=== PATIENT | female | born 2000 ===

== ENCOUNTER 2022-01-22 17:26 | Emergency (ER) | payer OTHER, SELFPAY | END 2022-01-22 18:03 | disposition left against medical advice (07) | PROVIDERS: Emergency Provider Emergency Medicine | DX: J02.9 Acute pharyngitis, unspecified (principal); R50.9 Fever, unspecified ==

== ENCOUNTER 2022-02-04 15:20 | Emergency (ER) | payer OTHER, SELFPAY ==
--- NOTE | ~2022-02-04 | XR_ITS ---
EXAMINATION: XR CHEST CLINICAL INFORMATION: Shortness of breath. COMPARISON: None TECHNIQUE: Frontal view of the chest was obtained. FINDINGS: No significant abnormality is noted involving the heart, lungs, mediastinum, bony thorax or soft tissues. XR/XR chest 1V IMPRESSION: No acute cardiopulmonary process.
--- NOTE | ~2022-02-04 | CT_ITS ---
EXAMINATION: CT ANGIOGRAM OF THE CHEST WITH AND WITHOUT CONTRAST (CT PULMONARY ANGIOGRAM FOR PE) CLINICAL INFORMATION: Reason for Exam Tachycardia. Elevated D-dimer COMPARISON: None TECHNIQUE: Prior to contrast administration, noncontrast localization images were obtained. Subsequently, multidetector volumetric imaging was performed from the thoracic inlet to below the diaphragms following the administration of 75 mL Omnipaque 350 intravenous contrast. No contrast reaction reported Sagittal, coronal, and MIP oblique sagittal reformatted images were obtained on the CT workstation, uploaded to PACS, and reviewed. This CT examination was performed using dose optimization techniques as appropriate, variously including the following: *Automated exposure control *Adjustment of mA and/or kV according to patient size (this includes techniques or standardized protocols for targeted exams where dose is matched to indication/reason for exam; i.e. extremities or head) *Use of iterative reconstruction technique Total exam dose-length product 204 mGy-cm FINDINGS: QUALITY OF STUDY/CONTRAST BOLUS: Satisfactory. PULMONARY ARTERIES: No central or segmental pulmonary emboli. THORACIC AORTA: No aneurysm or dissection. LUNG: No focal consolidation, nodules or masses. Diffuse mild bronchial wall thickening, without bronchiectasis. PLEURA: No pleural effusion or pneumothorax. MEDIASTINUM: Normal heart size. No pericardial effusion. No hilar or mediastinal lymphadenopathy. No evidence of septal bowing or right heart strain. CHEST WALL/AXILLA: No axillary or internal mammary lymphadenopathy. OSSEOUS STRUCTURES: No acute or suspicious osseous abnormality. UPPER ABDOMEN: Unremarkable. No reflux of contrast into the hepatic veins to suggest elevated right heart pressures. CT/CT angio chest PE protocol IMPRESSION: * No pulmonary embolism. * Mild diffuse bronchial thickening without bronchiectasis. This can be seen with mild degrees of bronchitis or asthma. VTE:
[2022-02-04 15:24] VITALS: BP 125/80; PULSE 135; RESP 20; TEMP 36.4; O2SAT 100; BMI 26.5
--- NOTE | 2022-02-04 15:43 | ECG_ITS ---
Test Reason : tachycardia Blood Pressure : / mmHG Vent. Rate : 132 BPM Atrial Rate : 132 BPM P-R Int : 144 ms QRS Dur : 076 ms QT Int : 290 ms P-R-T Axes : 080 078 -51 degrees QTc Int : 429 ms Sinus tachycardia T wave abnormality, consider inferior ischemia T wave abnormality, consider anterior ischemia Abnormal ECG No previous ECGs available Referred By: Mirta Kate Electronically Signed By:DILIP CLEMONS MD
--- NOTE | 2022-02-04 15:48 | ED_ITS ---
HPI - Headache General Chief Complaint: Headache Stated Complaint: High Blood Pressure Time Seen by Provider: 02/04/22 15:37 Source: patient Mode of arrival: ambulatory History of Present Illness HPI Narrative: 21-year-old female with no significant past medical history presenting to the ED complaining palpitations and tachycardia since last night with associated headache. Headache not maximal at onset. Also reports decreased p.o. intake, SOB and CP last night, denies CP at present. Admits to similar symptoms recently, was evaluated at [facility] ED last week and told was for thyroid, but was not started on any medications. Denies vision change/loss, vomiting, diarrhea, pedal edema, calf pain, history of clots, recent travel. MD elicited complaint: headache Onset (ago): day(s) Related Data Previous Rx's Medication Instructions Recorded oseltamivir 75 mg capsule (Tamiflu) 75 mg PO Q12H 5 days #10 caps 02/04/22 Allergies Allergy/AdvReac Type Severity Reaction Status Date / Time No Known Allergies Allergy Verified 02/04/22 15:43 Review of Systems Review of Systems: Constitutional: No Fever, No Chills, No Fatigue, No Malaise ENT/Mouth: No Ear Pain, No Nasal Congestion, No sore throat, No Rhinorrhea, No Swallowing Difficulty Eyes: No Eye Pain, No Swelling, No Redness, No Vision Changes Cardiovascular: + Chest Pain (resolved), + SOB, No Dyspnea on Exertion, No Orthopnea, No Edema, + Palpitations Respiratory: No Cough, No Sputum, No Wheezing, No Dyspnea Gastrointestinal: + Nausea, No Vomiting, No Diarrhea, No Constipation, No Abdominal pain Genitourinary: No Dysuria, No Urinary Frequency, No Hematuria, No Flank Pain Musculoskeletal: No joint pain, No Myalgias, No Joint Swelling Skin: No Skin Lesions, No rash Neuro: No Weakness, No Numbness, No Paresthesias, No Loss of Consciousness, No Dizziness, + Headache Yes all other systems are reviewed and are negative Constitutional: Constitutional: Reports as per [facility] Past Medical History Attestation statement: The following information was validated with the patient. Social History Social History Smoked in Last 30 Days: No Use of substances other than those prescribed or required for medical reasons: No Advance Directives: No Advance Directives Information Provided: Yes Patient : No Physical Exam Vital Signs: Vital Signs: Last Vital Signs Temp 98.5 F 02/04/22 21:52 Pulse 103 H 02/04/22 21:52 Resp 24 H 02/04/22 21:52 BP 114/73 02/04/22 21:52 Pulse Ox 100 02/04/22 21:52 O2 Del Method 02/04/22 21:52 BMI result Body Mass Index 26.5 Const: General: cooperative, healthy appearing, comfortable and no acute distress Orientation/consciousness: patient oriented x3 Limitations: no limitations HEENT: Head: Yes normal to inspection and Yes atraumatic Ears: hearing grossly normal bilaterally General nose exam: Normal external nose present Face and sinus: Yes normal facial exam Eyes: General: appearance normal, both eyes and all related structures EOM: EOMs intact bilaterally Neck: Neck: Yes normal visual inspection, Yes no lymphadenopathy and Yes no meningeal signs Resp: Effort & Inspection: normal respiratory effort and no respiratory distress Auscultation: clear to auscultation bilaterally, no crackles, no rales, no rhonchi and no wheezes Cardio: Rate: regular rate and tachycardic Heart sounds: S1 normal heart sound present and S2 normal heart sound present GI: Inspection: Yes normal to inspection Palpation (GI): Soft to palpation, nontender, no guarding and not rigid Skin: Rashes: no rashes Wounds: no wounds Neuro: General: patient oriented x3, gait normal, tone normal, moves all extremities, no meningeal signs, no focal motor deficits and CN's II-XI intact bilaterally Gait exam (Neuro): Normal gait present Extrem: General: Yes normal to inspection, Yes no pedal edema and Yes no calf tenderness Course Course Course Narrative: -[id number]--patient had an episode ?SVT with heart rate in the 170s, blew into syringe heart rate now sinus rhythm in the 120s -no leukocytosis. D-dimer mildly elevated to 235 > will obtain CTA to rule out PE. Troponin negative -UA negative -influenza A positive XR chest 1V IMPRESSION: No acute cardiopulmonary process. Obtained records from [facility] patient was evaluated on 01/22/22, tachycardic in the 120's and febrile to 102.4 during that evaluation. Per note patient with h istory hypothyroid not on medications. Suspected to have viral illness, not prescribed antibiotics, recommended PCP follow-up due to elevated LFTs and thyroid. Tachycardia improved after IVF at their facility -0--heart rate improving in the 114 range. Magnesium slightly low. Liver function WNL. -TSH low, free T4 minimally elevated. Case discussed with Dr. Wilson, will hold off on any beta blockade as thyroid dysfunction may be abnormal due to active viral illness 1936--CT angio chest PE protocol IMPRESSION: *? No pulmonary embolism. *? Mild diffuse bronchial thickening without bronchiectasis. This can be seen with mild degrees of bronchitis or asthma. VTE: -on re-evaluation patient reports symptomatic improvement, denies headache at present. Heart rate improved with IVF and antipyretics/pain medication Results discussed with patient including worrisome signs and symptoms and strict return precautions, and when to return to the emergency department. They verbalized understanding and feel safe for discharge at this time. Medications Administered Discontinued Medications Generic Name Dose Route Start Last Admin Trade Name Freq PRN Reason Stop Dose Admin Acetaminophen 650 mg 02/04/22 16:18 02/04/22 16:30 Acetaminophen 325 Mg Tablet PO 02/04/22 16:19 650 mg ONCE ONE Administration Diphenhydramine HCl 12.5 mg 02/04/22 15:43 02/04/22 16:30 Diphenhydramine Hcl 50 Mg/Ml Vial IVPUSH 02/04/22 15:44 12.5 mg ONCE ONE Administration Sodium Chloride 1,000 mls @ 999 mls/hr 02/04/22 15:45 02/04/22 17:52 Ns IV 02/04/22 16:45 Infused .Q1H1M FELICIA Infusion Sodium Chloride 1,000 mls @ 999 mls/hr 02/04/22 18:15 02/04/22 19:40 Ns IV 02/04/22 19:15 Infused .Q1H1M FELICIA Infusion Magnesium Sulfate 2 gm in 50 mls @ 25 mls/hr 02/04/22 18:39 02/04/22 21:01 Magnesium Sulfate/H2o IV 02/04/22 20:38 Infused ONCE ONE Infusion Lactated Ringer's 500 mls @ 999 mls/hr 02/04/22 19:45 02/04/22 20:21 Lr IV 02/04/22 20:15 Infused .Q31M FELICIA Infusion Iohexol 100 ml 02/04/22 19:08 02/04/22 19:08 Iohexol 350 Mg/Ml 100 Ml Infus..Btl IV 02/04/22 19:09 75 ml ONCE ONE Administration Ketorolac Tromethamine 15 mg 02/04/22 19:26 02/04/22 19:39 Ketorolac Tromethamine 15 Mg/Ml Vial IVPUSH 02/04/22 19:27 15 mg ONCE ONE Administration Metoclopramide HCl 10 mg 02/04/22 15:43 02/04/22 16:30 Metoclopramide Hcl 10 Mg/2 Ml Vial IVPUSH 02/04/22 15:44 10 mg ONCE ONE Administration Oseltamivir Phosphate 75 mg 02/04/22 19:32 02/04/22 19:39 Oseltamivir Phosphate 75 Mg Capsule PO 02/04/22 19:33 75 mg ONCE ONE Administration MDM - Headache MDM Narrative Medical decision making narrative: 21-year-old female with no significant past medical history presenting to the ED complaining palpitations and tachycardia since last night with associated headache. Also reports SOB and CP last night, denies CP at present. On exam tachycardic, NAD, nontoxic appearing, lungs CTA, abdomen soft/nontender, no focal deficits. Concern for thyroid dysfunction vs possible PE vs anxiety vs migraine headache vs dehydration. Lower suspicion for ACS, infectious etiology including sepsis or DVT. Unlikely SAH/CVT or dissection Plan: EKG, labs, CXR, IVF, migraine cocktail, re-evaluate Differential Diagnosis Differential diagnosis: Likely migraine and headache Medical Records Attestation: I reviewed the patient's medical records. Lab Data Attestation: I reviewed the patient's lab results. Result diagrams: 02/04/22 16:18 02/04/22 17:36 Labs: Lab Results 02/04/22 02/04/22 02/04/22 Range/Units 16:18 16:18 16:18 WBC 7.6 (4.8-10.8) X10*3/uL RBC 4.89 (4.20-5.50) X10*6/uL Hgb 12.7 (12.0-16.0) g/dl Hct 39.1 (37.0-47.0) % MCV 80.0 (80.0-98.0) fL MCH 26.0 L (27.0-33.0) pg MCHC 32.5 (31.0-35.0) g/dl RDW 12.9 (11.0-16.0) % Plt Count 320 (160-400) X10*3/uL MPV 9.7 (9.4-12.3) fL Immature Gran % (Auto) 0.4 (0.0-0.4) % Neut % (Auto) 60.5 (45-73) % Lymph % (Auto) 23.3 (20-40) % [place]cd[place] % (Auto) 15.2 H (2-11) % Eos % (Auto) 0.3 (0-4) % Baso % (Auto) 0.3 (0-2) % Lymph # (Auto) 1.8 (1.2-4.9) X10*3/uL Mcd[place]ough # (Auto) 1.2 (0.1-1.2) X10*3/uL Eos # (Auto) 0.0 (0.0-0.4) X10*3/uL Baso # (Auto) 0.0 (0.0-0.2) X10*3/uL Abs Immat Gran (auto) 0.03 (0.00-0.03) X10*3/uL Absolute Neuts (auto) 4.6 (2.0-8.3) x10*3/uL Absolute Nucleated RBC 0.000 (0.0-0.012) X10*3/uL Nucleated RBC % (auto) 0.0 (0.0-0.2) /100WBC D-Dimer High Sensitivty 235 NG/ML Sodium (135-145) mmol/L Potassium (3.3-5.1) mmol/L Chloride (96-108) mmol/L Carbon Dioxide (22-29) mmol/L Anion Gap (12-20) BUN (9-16) mg/dL Creatinine (0.5-1.4) mg/dL Estim Creat Clear Calc Estimated GFR Random Glucose (60-115) mg/dL Calcium (8.4-10.2) mg/dL Magnesium (1.6-2.6) mg/dL Total Bilirubin (0.0-1.0) mg/dL Direct Bilirubin (0.0-0.5) mg/dL AST (5-31) U/L ALT (0-31) U/L Alkaline Phosphatase (39-117) U/L Troponin I High Sens < 3.5 (<3.5-17.0) ng/L Total Protein (6.5-8.0) g/dL Albumin (3.5-5.0) g/dL TSH (0.32-4.0) uIU/mL Free T4 (0.71-1.85) ng/dL Beta HCG, Quant mIU/mL Urine Color Urine Appearance Urine pH (5.0-9.0) Ur Specific [place] (1.005-1.025) Urine Protein (Neg-Trace) mg/dL Urine Glucose (UA) (Negative) mg/dL Urine Ketones (Negative) mg/dL Urine Blood (Negative) Urine Nitrite (Negative) Ur Leukocyte Esterase (Negative) Urine Test (NEGATIVE) COVID-19 (ARISTEO) (Negative) COVID-19 Clin Com Influenza Type A (AAMIR) (Negative) Influenza Type B (AAMIR) (Negative) Influenza A & B Note 02/04/22 02/04/22 02/04/22 Range/Units 17:21 17:21 17:36 WBC (4.8-10.8) X10*3/uL RBC (4.20-5.50) X10*6/uL Hgb (12.0-16.0) g/dl Hct (37.0-47.0) % MCV (80.0-98.0) fL MCH (27.0-33.0) pg MCHC (31.0-35.0) g/dl RDW (11.0-16.0) % Plt Count (160-400) X10*3/uL MPV (9.4-12.3) fL Immature Gran % (Auto) (0.0-0.4) % Neut % (Auto) (45-73) % Lymph % (Auto) (20-40) % Mcd[place]ough % (Auto) (2-11) % Eos % (Auto) (0-4) % Baso % (Auto) (0-2) % Lymph # (Auto) (1.2-4.9) X10*3/uL [place] # (Auto) (0.1-1.2) X10*3/uL Eos # (Auto) (0.0-0.4) X10*3/uL Baso # (Auto) (0.0-0.2) X10*3/uL Abs Immat Gran (auto) (0.00-0.03) X10*3/uL Absolute Neuts (auto) (2.0-8.3) x10*3/uL Absolute Nucleated RBC (0.0-0.012) X10*3/uL Nucleated RBC % (auto) (0.0-0.2) /100WBC D-Dimer High Sensitivty NG/ML Sodium 140 (135-145) mmol/L Potassium 4.0 (3.3-5.1) mmol/L Chloride 108 (96-108) mmol/L Carbon Dioxide 23 (22-29) mmol/L Anion Gap 13 (12-20) BUN 8 L (9-16) mg/dL Creatinine 0.54 (0.5-1.4) mg/dL Estim Creat Clear Calc 144.2 Estimated GFR > 60 Random Glucose 80 (60-115) mg/dL Calcium 8.7 (8.4-10.2) mg/dL Magnesium 1.5 L (1.6-2.6) mg/dL Total Bilirubin 0.3 (0.0-1.0) mg/dL Direct Bilirubin 0.2 (0.0-0.5) mg/dL AST 17 (5-31) U/L ALT 30 (0-31) U/L Alkaline Phosphatase 87 (39-117) U/L Troponin I High Sens (<3.5-17.0) ng/L Total Protein 6.0 L (6.5-8.0) g/dL Albumin 3.6 (3.5-5.0) g/dL TSH < 0.01 L (0.32-4.0) uIU/mL Free T4 1.87 H (0.71-1.85) ng/dL Beta HCG, Quant < 2 mIU/mL Urine Color Urine Appearance Urine pH (5.0-9.0) Ur Specific [place] (1.005-1.025) Urine Protein (Neg-Trace) mg/dL Urine Glucose (UA) (Negative) mg/dL Urine Ketones (Negative) mg/dL Urine Blood (Negative) Urine Nitrite (Negative) Ur Leukocyte Esterase (Negative) Urine Test (NEGATIVE) COVID-19 (ARISTEO) Negative (Negative) COVID-19 Clin Com See Note Influenza Type A (AAMIR) Positive A (Negative) Influenza Type B (AAMIR) Negative (Negative) Influenza A & B Note See Note 02/04/22 02/04/22 Range/Units 17:38 17:38 WBC (4.8-10.8) X10*3/uL RBC (4.20-5.50) X10*6/uL Hgb (12.0-16.0) g/dl Hct (37.0-47.0) % MCV (80.0-98.0) fL MCH (27.0-33.0) pg MCHC (31.0-35.0) g/dl RDW (11.0-16.0) % Plt Count (160-400) X10*3/uL MPV (9.4-12.3) fL Immature Gran % (Auto) (0.0-0.4) % Neut % (Auto) (45-73) % Lymph % (Auto) (20-40) % Mcd[place] % (Auto) (2-11) % Eos % (Auto) (0-4) % Baso % (Auto) (0-2) % Lymph # (Auto) (1.2-4.9) X10*3/uL [place] # (Auto) (0.1-1.2) X10*3/uL Eos # (Auto) (0.0-0.4) X10*3/uL Baso # (Auto) (0.0-0.2) X10*3/uL Abs Immat Gran (auto) (0.00-0.03) X10*3/uL Absolute Neuts (auto) (2.0-8.3) x10*3/uL Absolute Nucleated RBC (0.0-0.012) X10*3/uL Nucleated RBC % (auto) (0.0-0.2) /100WBC D-Dimer High Sensitivty NG/ML Sodium (135-145) mmol/L Potassium (3.3-5.1) mmol/L Chloride (96-108) mmol/L Carbon Dioxide (22-29) mmol/L Anion Gap (12-20) BUN (9-16) mg/dL Creatinine (0.5-1.4) mg/dL Estim Creat Clear Calc Estimated GFR Random Glucose (60-115) mg/dL Calcium (8.4-10.2) mg/dL Magnesium (1.6-2.6) mg/dL Total Bilirubin (0.0-1.0) mg/dL Direct Bilirubin (0.0-0.5) mg/dL AST (5-31) U/L ALT (0-31) U/L Alkaline Phosphatase (39-117) U/L Troponin I High Sens (<3.5-17.0) ng/L Total Protein (6.5-8.0) g/dL Albumin (3.5-5.0) g/dL TSH (0.32-4.0) uIU/mL Free T4 (0.71-1.85) ng/dL Beta HCG, Quant mIU/mL Urine Color Yellow Urine Appearance Cloudy Urine pH 5.5 (5.0-9.0) Ur Specific [place] 1.015 (1.005-1.025) Urine Protein Negative (Neg-Trace) mg/dL Urine Glucose (UA) Negative (Negative) mg/dL Urine Ketones Trace (Negative) mg/dL Urine Blood Negative (Negative) Urine Nitrite Negative (Negative) Ur Leukocyte Esterase Negative (Negative) Urine Test NEGATIVE (NEGATIVE) COVID-19 (ARISTEO) (Negative) COVID-19 Clin Com Influenza Type A (AAMIR) (Negative) Influenza Type B (AAMIR) (Negative) Influenza A & B Note ECG Data Attestation: I personally reviewed and interpreted this ECG as follows: ECG interpretation date: 02/04/22 ECG interpretation time: 15:30 Interpretation: EKG sinus tachycardia rate of 132. QTC 429. No STEMI. Nonischemic. Discharge Plan Discharge Clinical Impression: Influenza A Patient Disposition: Home, Self-Care Instructions: Influenza (ED) Additional Instructions: You have the flu. You are contagious. Cover your mouth and wash your hands. Tamiflu is antiviral medication please take as prescribed. Please stay hydrated at home. Take Tylenol & Motrin as needed. You need to have close follow-up with your primary care doctor. Return to the ED if symptoms persist or worsen, you develop constant racing heart rate, fever unresolved with medications, shortness breath or chest pain Prescriptions: New oseltamivir [Tamiflu] 75 mg capsule 75 mg PO Q12H 5 Days Qty: 10 0RF Referrals: Physician,None [Primary Care Provider] - 5 days Stand Alone Forms: Work/School Release
[2022-02-04 16:06] VITALS: PULSE 160
[2022-02-04 16:22] LABS: MANUAL DIFF FLAG NO
[2022-02-04 16:24] LABS: Basophils Percent Auto 0.3 % (0-2); Eosinophils Percent Auto 0.3 % (0-4); Hematocrit 39.1 % (37.0-47.0); Hemoglobin 12.7 g/dl (12.0-16.0); Imm Gran Abs Auto 0.03 X10*3/uL (0.00-0.03); Imm Gran Pct Auto 0.4 % (0.0-0.4); Lymphocytes Absolute Auto 1.8 X10*3/uL (1.2-4.9); Lymphocytes Percent Auto 23.3 % (20-40); Mean Corpuscular HGB Conc 32.5 g/dl (31.0-35.0); Mean Platelet Volume 9.7 fL (9.4-12.3); Monocytes Absolute Auto 1.2 X10*3/uL (0.1-1.2); Monocytes Percent Auto 15.2 % (2-11); Neutrophils Absolute Auto 4.6 x10*3/uL (2.0-8.3); Neutrophils Percent Auto 60.5 % (45-73); Platelet Count 320 X10*3/uL (160-400); Red Blood Count 4.89 X10*6/uL (4.20-5.50); Red Cell Distribution Width 12.9 % (11.0-16.0); White Blood Count 7.6 X10*3/uL (4.8-10.8)
[2022-02-04] MEDS: Acetaminophen 325 MG TABLET 650 MG PO (16:30)
[2022-02-04] MEDS: Metoclopramide HCl 10 MG/2 ML VIAL IVPUSH (16:30)
[2022-02-04] MEDS: diphenhydrAMINE HCL 50 MG/ML VIAL 12.5 MG IVPUSH (16:30)
[2022-02-04] MEDS: 0.9 % Sodium Chloride 1,000 ML 999 ML IV ×2 (16:30→18:22)
[2022-02-04 16:35] LABS: D Dimer High Sensitivity 235 NG/ML
[2022-02-04 16:53] LABS: Troponin-I High Sensitivity < 3.5 ng/L (<3.5-17.0)
[2022-02-04 17:49] LABS: Appearance Urine Cloudy; Color Urine Yellow; Glucose Urine UA Negative (Negative); Leukocyte Esterase Urine Negative (Negative); Nitrite Urine Negative (Negative); PH 5.5 (5.0-9.0); Specific Gravity - Urine 1.015 (1.005-1.025); Urine Blood Negative (Negative); Urine Ketones Trace mg/dL (Negative); Urine Protein Negative (Neg-Trace)
[2022-02-04 17:51] VITALS: BP 113/59; PULSE 120; RESP 18; TEMP 37; O2SAT 100
[2022-02-04 17:51] LABS: COVID-19 Test Negative (Negative); IDNOW Serial# 16C4AD1C
[2022-02-04 17:52] LABS: UPreg QC Valid YES; Urine Pregnancy NEGATIVE (NEGATIVE)
[2022-02-04 17:52] LABS: IDNOW Serial# BCCEAD1C; Influenza A Positive (Negative); Influenza B2 Negative (Negative)
[2022-02-04 18:32] LABS: Alanine Aminotransferase 30 U/L (0-31); Albumin Level 3.6 g/dL (3.5-5.0); Alkaline Phosphatase 87 U/L (39-117); Anion Gap 13 (12-20); Aspartate Amino Transferase 17 U/L (5-31); Bilirubin Direct 0.2 mg/dL (0.0-0.5); Bilirubin Total 0.3 mg/dL (0.0-1.0); Blood Urea Nitrogen 8 mg/dL (9-16); Calcium 8.7 mg/dL (8.4-10.2); Carbon Dioxide 23 mmol/L (22-29); Chloride 108 mmol/L (96-108); Creatinine Clr Calc Pharmacy 144.2; Estimated Glomerular Filt Rate > 60; Glucose Random 80 mg/dL (60-115); HCG Quantitative < 2 mIU/mL; Magnesium 1.5 mg/dL (1.6-2.6); Sodium 140 mmol/L (135-145); TSH reflex Free T4 < 0.01 uIU/mL (0.32-4.0)
[2022-02-04 19:04] LABS: Free T4 (Free Thyroxine) 1.87 ng/dL (0.71-1.85)
[2022-02-04] MEDS: Magnesium Sulfate/H2O 2 GM/50 ML PIGGYBACK IV (19:05)
[2022-02-04] MEDS: iohexoL 350 MG/ML 100 ML INFUS..BTL IV (19:08)
[2022-02-04 19:33] VITALS: BP 114/60; PULSE 120; RESP 18; TEMP 37.1; O2SAT 100
[2022-02-04] MEDS: Ketorolac Tromethamine 15 MG/ML VIAL IVPUSH (19:39)
[2022-02-04] MEDS: Oseltamivir Phosphate 75 MG CAPSULE PO (19:39)
[2022-02-04] MEDS: Lactated Ringers 500 ML 999 ML IV (19:45)
[2022-02-04 21:04] VITALS: BP 113/70; PULSE 109
[2022-02-04 21:52] VITALS: BP 114/73; PULSE 103; RESP 24; TEMP 36.9; O2SAT 100
--- NOTE | 2022-02-04 22:47 | PC.NURSE ---
Discharge instructions reviewed with pt. Pt verbalizes understanding. R ac IV removed.
== END 2022-02-04 22:48 | disposition home or self-care (01) ==
PROVIDERS: Physician Assistant; Emergency Provider Emergency Medicine
DX: J10.1 Influenza due to other identified influenza virus with other respiratory manifestations (principal); R00.0 Tachycardia, unspecified; R51.9 Headache, unspecified; Z20.822 Contact with and (suspected) exposure to COVID-19; Z79.899 Other long term (current) drug therapy
CPT/HCPCS: 36415; 71045; 71275; 80048; 80076; 81003; 81025; 83735; 84439; 84443; 84484; 84702; 85025; 85379; 87502; 87635; 93005; 96361; 96374; 96375; 96376; 99285; J1200; J1885; J2765; J3475; Q9967

== ENCOUNTER 2022-10-07 09:35 | Emergency (ER) | payer OTHER, SELFPAY ==
--- NOTE | ~2022-10-07 | US_ITS ---
EXAMINATION: US PELVIS CLINICAL INFORMATION: Suprapubic pain. COMPARISON: None available. TECHNIQUE: Ultrasound of the pelvis is performed using both transabdominal and transvaginal transducers along with Doppler. Transvaginal imaging is performed due to inadequate visualization transabdominally. FINDINGS: Uterus: The uterus is anteverted and measures 8.2 x 4.4 x 5.2 cm. The double wall endometrial thickness is 0.9 mm. The uterus is smooth in contour and has normal myometrial echogenicity. The cervix is closed. Mild anechoic fluid within the cervical canal without abnormality. Adnexa: Both ovaries are visualized. There is normal color flow to the adnexa. There is no ovarian torsion. Trace free fluid in the cul-de-sac. Right ovary measures 3.7 x 2.8 x 2.0 cm. 10.9 cc volume. Left ovary measures 3.6 with 2.2 x 1.6 cm. 6.2 cc volume. Urinary bladder: Mildly distended without focal abnormality. US/US pelvic and transvaginal IMPRESSION: Unremarkable pelvic ultrasound. Benign physiologic changes without other significant abnormality.
[2022-10-07 09:46] VITALS: BP 126/74; PULSE 77; RESP 19; TEMP 36.6; O2SAT 98; BMI 27.8
--- NOTE | 2022-10-07 10:32 | ED_ITS ---
HPI - Abdominal Pain General Chief Complaint: Abdominal Pain Stated Complaint: abd pain/ Nausea Time Seen by Provider: 10/07/22 09:53 Source: patient and RN notes reviewed Mode of arrival: ambulatory Limitations: no limitations History of Present Illness HPI narrative: This is a 21-year-old female, with a past medical history of ectopic in October 2021, presenting to the emergency department with generalized abdominal pain, nausea, and diarrhea x2 weeks. Patient denies any fevers, chills, headaches, sore throat, and ear pain. Patient reports that the abdominal pain she gets last for several minutes and resolves on its own. She states the pain is a cramping like sensation in his diffusely throughout her entire abdomen. She states that yesterday she developed left lower abdominal pain. She states that she has had no constipation, bloody or black stool. History of ectopic last year. She is sexually active with her , last menstrual period 4 weeks ago. No concerns for sexually transmitted infections. She endorses some urinary urgency, denies dysuria, hematuria, or frequency. No other complaints or concerns at this time. MD elicited complaint: abdominal pain Onset (ago): week(s) Pain Consistency: intermittent Location: diffuse Quality: cramping Radiation: LLQ Migration to: no migration Exacerbating factors: nothing Relieving factors: nothing Associated symptoms: nausea Related Data Previous Rx's Medication Instructions Recorded oseltamivir 75 mg capsule (Tamiflu) 75 mg PO Q12H 5 days #10 caps 02/04/22 ondansetron 4 mg disintegrating 4 mg PO Q6-8H PRN nausea and 10/07/22 tablet vomiting #14 tabs Allergies Allergy/AdvReac Type Severity Reaction Status Date / Time No Known Allergies Allergy Verified 10/07/22 09:46 Review of Systems Review of Systems Yes all other systems are reviewed and are negative Constitutional: Reports as per [facility] Social History Social History Alcohol intake: never Physical Exam ED Vital Signs: Vital Signs - 24 hr 10/07/22 09:46 10/07/22 12:40 Temperature 98 F 98.2 F Pulse Rate 77 89 Respiratory Rate 19 19 Blood Pressure 126/74 112/71 Pulse Oximetry 98 100 Oxygen Delivery Method Room Air Room Air BMI result Body Mass Index 27.8 Const General: cooperative, comfortable and no acute distress Orientation/consciousness: patient oriented x3 Limitations: no limitations HENMT Head: Yes normal to inspection, Yes normocephalic and Yes atraumatic Ears: hearing grossly normal bilaterally General nose exam: Normal external nose present Face and sinus: Yes normal facial exam Mouth: Normal oral and palatal mucosa present, oropharynx normal and moist mucous membranes Throat: Yes posterior oropharynx normal Eyes General: appearance normal, both eyes and all related structures Eyelids: Yes eyelids normal Conjunctivae: conjunctivae normal Sclerae: sclerae normal Pupils: Equal, round and reactive pupils present EOM: EOMs intact bilaterally Neck Neck: Yes normal visual inspection, Yes full ROM and Yes no lymphadenopathy Lymphatic: no lymphadenopathy noted Chest Chest palpation & inspection: normal inspection of the chest Resp Effort & Inspection: normal respiratory effort and able to speak in complete sentences Auscultation: clear to auscultation bilaterally, no crackles, no rales, no rhonchi and no wheezes Cardio Rate: regular rate Rhythm: regular rhythm Heart sounds: S1 normal heart sound present and S2 normal heart sound present GI Other: Abdomen is soft, with tenderness to palpation in suprapubic region left greater than right. No tenderness over McBurney's point. No rebound or guarding. Normoactive bowel sounds present all 4 quadrants. Inspection: Yes normal to inspection Auscultation: normal bowel sounds Skin General skin exam: no rashes or lesions noted Trauma: no lacerations or abrasions Wounds: no wounds Neuro General: patient oriented x3 and moves all extremities Cranial nerves: Yes Equal, round and reactive pupils present Extrem General: Yes normal to inspection Right upper extremity: normal to inspection Left upper extremity: normal to inspection Right lower extremity: normal to inspection Left lower extremity: normal to inspection Course Reevaluation(s) Reevaluation #1: pt remained asymptomatic during hospital stay. Vaginal US benign. Will defer CT abdomen at this time. UA unremarkable. all other labs reassuring. Discharged with strict return precautions. Pt understands and agrees with plan. Stable for d/c. Medical Decision Making Medical Decision Making MDM Narrative: 21-year-old female presenting to the emergency department for abdominal pain, nausea, and diarrhea. Endorsing urinary urgency. Patient also endorsing chest pain midsternal. That last for several seconds and resolves on its own. On arrival, vital signs within normal limits, patient is afebrile, normotensive, with a normal pulse. On examination, abdomen is soft, nondistended, with normoactive bowel sounds present all 4 quadrants, tenderness to palpation in the suprapubic region. Given duration and patient's only having pain with palpation, will defer diagnostic imaging and obtain labs and urinalysis for further investigation. The patient is not nauseous and not in pain at this time, will defer administering medications. Plan: Labs, EKG, UA Differential Diagnosis Differential Diagnoses: The differential diagnosis associated with the presentation includes Differential diagnoses include , ectopic , UTI, gastritis, gastroenteritis, viral syndrome, diverticulitis, diverticulosis, colilithiasis, cholecystitis, pyelonephritis Admission/Observation Consideration of admission/observation: Escalation of care including a dmission/observation considered Patient would have been admitted to the hospital had her work up had any findings where hospital admission was appropriate and her clinical presentation warranted hospital admission. Lab Data MDM Lab Attestation statement: I reviewed the patient's lab results. 10/07/22 10:43 10/07/22 10:43 Labs: Lab Results 10/07/22 10/07/22 10/07/22 Range/Units 10:42 10:42 10:43 WBC 11.6 H (4.8-10.8) X10*3/uL RBC 4.98 (4.20-5.50) X10*6/uL Hgb 12.4 (12.0-16.0) g/dl Hct 39.3 (37.0-47.0) % MCV 78.9 L (80.0-98.0) fL MCH 24.9 L (27.0-33.0) pg MCHC 31.6 (31.0-35.0) g/dl RDW 14.0 (11.0-16.0) % Plt Count 294 (160-400) X10*3/uL MPV 9.3 L (9.4-12.3) fL Immature Gran % (Auto) 0.4 (0.0-0.4) % Neut % (Auto) 63.9 (45-73) % Lymph % (Auto) 28.1 (20-40) % [place] % (Auto) 6.0 (2-11) % Eos % (Auto) 1.4 (0-4) % Baso % (Auto) 0.2 (0-2) % Lymph # (Auto) 3.3 (1.2-4.9) X10*3/uL [place] # (Auto) 0.7 (0.1-1.2) X10*3/uL Eos # (Auto) 0.2 (0.0-0.4) X10*3/uL Baso # (Auto) 0.0 (0.0-0.2) X10*3/uL Abs Immat Gran (auto) 0.05 H (0.00-0.03) X10*3/uL Absolute Neuts (auto) 7.4 (2.0-8.3) x10*3/uL Absolute Nucleated RBC 0.000 (0.0-0.012) X10*3/uL Nucleated RBC % (auto) 0.0 (0.0-0.2) /100WBC Sodium (135-145) mmol/L Potassium (3.3-5.1) mmol/L Chloride (96-108) mmol/L Carbon Dioxide (22-29) mmol/L Anion Gap (12-20) BUN (9-16) mg/dL Creatinine (0.5-1.4) mg/dL Estim Creat Clear Calc Estimated GFR Random Glucose (60-115) mg/dL Calcium (8.4-10.2) mg/dL Magnesium (1.6-2.6) mg/dL Total Bilirubin (0.0-1.0) mg/dL Direct Bilirubin (0.0-0.5) mg/dL AST (5-31) U/L ALT (0-31) U/L Alkaline Phosphatase (39-117) U/L Troponin I High Sens < 2.7 (<3.5-17.0) ng/L Total Protein (6.5-8.0) g/dL Albumin (3.5-5.0) g/dL Lipase (8-78) U/L Beta HCG, Quant < 2 mIU/mL Urine Color Urine Appearance Urine pH (5.0-9.0) Ur Specific [place] (1.005-1.025) Urine Protein (Neg-Trace) mg/dL Urine Glucose (UA) (Negative) mg/dL Urine Ketones (Negative) mg/dL Urine Blood (Negative) Urine Nitrite (Negative) Ur Leukocyte Esterase (Negative) Urine Test (NEGATIVE) 10/07/22 10/07/22 10/07/22 Range/Units 10:43 11:23 11:23 WBC (4.8-10.8) X10*3/uL RBC (4.20-5.50) X10*6/uL Hgb (12.0-16.0) g/dl Hct (37.0-47.0) % MCV (80.0-98.0) fL MCH (27.0-33.0) pg MCHC (31.0-35.0) g/dl RDW (11.0-16.0) % Plt Count (160-400) X10*3/uL MPV (9.4-12.3) fL Immature Gran % (Auto) (0.0-0.4) % Neut % (Auto) (45-73) % Lymph % (Auto) (20-40) % [place] % (Auto) (2-11) % Eos % (Auto) (0-4) % Baso % (Auto) (0-2) % Lymph # (Auto) (1.2-4.9) X10*3/uL [place] # (Auto) (0.1-1.2) X10*3/uL Eos # (Auto) (0.0-0.4) X10*3/uL Baso # (Auto) (0.0-0.2) X10*3/uL Abs Immat Gran (auto) (0.00-0.03) X10*3/uL Absolute Neuts (auto) (2.0-8.3) x10*3/uL Absolute Nucleated RBC (0.0-0.012) X10*3/uL Nucleated RBC % (auto) (0.0-0.2) /100WBC Sodium 141 (135-145) mmol/L Potassium 3.6 (3.3-5.1) mmol/L Chloride 107 (96-108) mmol/L Carbon Dioxide 28 (22-29) mmol/L Anion Gap 10 L (12-20) BUN 10 (9-16) mg/dL Creatinine 0.62 (0.5-1.4) mg/dL Estim Creat Clear Calc 128.4 Estimated GFR > 60 Random Glucose 80 (60-115) mg/dL Calcium 9.2 (8.4-10.2) mg/dL Magnesium 1.6 (1.6-2.6) mg/dL Total Bilirubin 0.3 (0.0-1.0) mg/dL Direct Bilirubin 0.1 (0.0-0.5) mg/dL AST 13 (5-31) U/L ALT 12 (0-31) U/L Alkaline Phosphatase 111 (39-117) U/L Troponin I High Sens (<3.5-17.0) ng/L Total Protein 6.9 (6.5-8.0) g/dL Albumin 3.8 (3.5-5.0) g/dL Lipase 10 (8-78) U/L Beta HCG, Quant mIU/mL Urine Color Yellow Urine Appearance Clear Urine pH 5.5 (5.0-9.0) Ur Specific [place] 1.025 (1.005-1.025) Urine Protein Negative (Neg-Trace) mg/dL Urine Glucose (UA) Negative (Negative) mg/dL Urine Ketones Trace (Negative) mg/dL Urine Blood Negative (Negative) Urine Nitrite Negative (Negative) Ur Leukocyte Esterase Negative (Negative) Urine Test NEGATIVE (NEGATIVE) Radiology Impression Discussion of test interpretation with radiology: I have reviewed the radiologist's reading. External Record Review External record reviewed: Inpatient record, Office record, Outpatient record, Prior outpatient labs, Prior outpatient radiology, Primary care record and Outside ED record Discharge Plan Discharge Clinical Impression: Abdominal pain, Nausea Patient Disposition: Home, Self-Care Instructions: Acute Nausea and Vomiting (ED), Abdominal Pain (ED) Additional Instructions: Your lab work, urine, and ultrasound were normal today. It is unclear what is causing you to have your symptoms. Please follow-up with your primary care physician for further evaluation. If any new or worsening symptoms occur including but not limited to worsening abdominal pain, nausea, vomiting, or diarrhea, Please return for re- evaluation. I am prescribing you a nausea medication, take as prescribed. Prescriptions: New ondansetron 4 mg tablet,disintegrating 4 mg PO Q6-8H PRN (Reason: nausea and vomiting) Qty: 14 0RF No Action oseltamivir [Tamiflu] 75 mg capsule 75 mg PO Q12H 5 Days Qty: 10 0RF Interventions: ED Discharge Assessment Last Done: 10/07/22 17:58 Discharge Date/Time: 10/07/22 18:00
--- NOTE | 2022-10-07 10:35 | ECG_ITS ---
Test Reason : CHEST PAIN Blood Pressure : / mmHG Vent. Rate : 079 BPM Atrial Rate : 079 BPM P-R Int : 134 ms QRS Dur : 074 ms QT Int : 374 ms P-R-T Axes : 052 072 036 degrees QTc Int : 428 ms Sinus rhythm with marked sinus arrhythmia Nonspecific T wave abnormality Abnormal ECG When compared with ECG of 04-FEB-2022 15:30, Vent. rate has decreased BY 53 BPM Nonspecific T wave abnormality has replaced inverted T waves in Inferior leads T wave inversion no longer evident in Anterior leads Referred By: Denise Jolley Electronically Signed By:LUIS E GUILLEN MD
[2022-10-07 10:47] LABS: MANUAL DIFF FLAG NO
[2022-10-07 10:56] LABS: Basophils Percent Auto 0.2 % (0-2); Eosinophils Absolute Auto 0.2 X10*3/uL (0.0-0.4); Eosinophils Percent Auto 1.4 % (0-4); Hematocrit 39.3 % (37.0-47.0); Hemoglobin 12.4 g/dl (12.0-16.0); Imm Gran Abs Auto 0.05 X10*3/uL (0.00-0.03); Imm Gran Pct Auto 0.4 % (0.0-0.4); Lymphocytes Absolute Auto 3.3 X10*3/uL (1.2-4.9); Lymphocytes Percent Auto 28.1 % (20-40); Mean Corpuscular HGB Conc 31.6 g/dl (31.0-35.0); Mean Corpuscular Hemoglobin 24.9 pg (27.0-33.0); Mean Corpuscular Volume 78.9 fL (80.0-98.0); Mean Platelet Volume 9.3 fL (9.4-12.3); Monocytes Absolute Auto 0.7 X10*3/uL (0.1-1.2); Neutrophils Absolute Auto 7.4 x10*3/uL (2.0-8.3); Neutrophils Percent Auto 63.9 % (45-73); Platelet Count 294 X10*3/uL (160-400); Red Blood Count 4.98 X10*6/uL (4.20-5.50); White Blood Count 11.6 X10*3/uL (4.8-10.8)
[2022-10-07 11:05] LABS: Alanine Aminotransferase 12 U/L (0-31); Albumin Level 3.8 g/dL (3.5-5.0); Alkaline Phosphatase 111 U/L (39-117); Anion Gap 10 (12-20); Aspartate Amino Transferase 13 U/L (5-31); Bilirubin Direct 0.1 mg/dL (0.0-0.5); Bilirubin Total 0.3 mg/dL (0.0-1.0); Blood Urea Nitrogen 10 mg/dL (9-16); Calcium 9.2 mg/dL (8.4-10.2); Carbon Dioxide 28 mmol/L (22-29); Chloride 107 mmol/L (96-108); Creatinine Clr Calc Pharmacy 128.4; Estimated Glomerular Filt Rate > 60; Glucose Random 80 mg/dL (60-115); Lipase 10 U/L (8-78); Magnesium 1.6 mg/dL (1.6-2.6); Potassium 3.6 mmol/L (3.3-5.1); Sodium 141 mmol/L (135-145); Total Protein 6.9 g/dL (6.5-8.0)
[2022-10-07 11:22] LABS: HCG Quantitative < 2 mIU/mL; Troponin-I High Sensitivity < 2.7 ng/L (<3.5-17.0)
[2022-10-07 11:32] LABS: Appearance Urine Clear; Color Urine Yellow; Glucose Urine UA Negative (Negative); Leukocyte Esterase Urine Negative (Negative); Nitrite Urine Negative (Negative); PH 5.5 (5.0-9.0); Specific Gravity - Urine 1.025 (1.005-1.025); Urine Blood Negative (Negative); Urine Ketones Trace mg/dL (Negative); Urine Protein Negative (Neg-Trace)
[2022-10-07 11:35] LABS: UPreg QC Valid YES; Urine Pregnancy NEGATIVE (NEGATIVE)
[2022-10-07 12:40] VITALS: BP 112/71; PULSE 89; RESP 19; TEMP 36.8; O2SAT 100
[2022-10-07 17:30] VITALS: BP 108/79; PULSE 95; RESP 15; O2SAT 93
== END 2022-10-07 18:00 | disposition home or self-care (01) ==
PROVIDERS: Physician Assistant Medical; Emergency Provider Emergency Medicine
DX: R10.32 Left lower quadrant pain (principal); R11.2 Nausea with vomiting, unspecified
CPT/HCPCS: 36415; 76830; 76856; 80048; 80076; 81003; 81025; 83690; 83735; 84484; 84702; 85025; 93005; 99284

== ENCOUNTER → 2022-10-07 10:35 | Outpatient (BNV) | payer OTHER, SELFPAY | PROVIDERS: Emergency Provider Emergency Medicine; Visit Provider Internal Medicine Cardiovascular Disease | DX: R07.9 Chest pain, unspecified (principal) | CPT/HCPCS: 93010 ==

== ENCOUNTER 2023-08-29 20:48 | Emergency (ER) | payer OTHER, SELFPAY ==
[2023-08-29] VITALS (7 sets, daily range): BP systolic 115–134; BP diastolic 59–81; PULSE 117–137; RESP 17–22; TEMP 36.5–37.2; O2SAT 100; BMI 26.5
--- NOTE | 2023-08-29 | ECG_ITS ---
Test Reason : TACHYCARDIA Blood Pressure : / mmHG Vent. Rate : 135 BPM Atrial Rate : 135 BPM P-R Int : 136 ms QRS Dur : 072 ms QT Int : 266 ms P-R-T Axes : 060 065 023 degrees QTc Int : 399 ms Sinus tachycardia Possible Left atrial enlargement Nonspecific T wave abnormality Abnormal ECG When compared with ECG of 07-OCT-2022 10:56, Vent. rate has increased BY 56 BPM Referred By: Generic ED Physician Electronically Signed By:LUIS E GUILLEN MD
--- NOTE | ~2023-08-29 | CT_ITS ---
EXAMINATION: CT ANGIOGRAM OF THE CHEST WITH AND WITHOUT CONTRAST (CT PULMONARY ANGIOGRAM FOR PE) CLINICAL INFORMATION: Reason for Exam chest pain COMPARISON: CT PE study 02/04/2022 TECHNIQUE: Prior to contrast administration, noncontrast localization images were obtained. Subsequently, multidetector volumetric imaging was performed from the thoracic inlet to below the diaphragms following the administration of 65 mL Omnipaque 350 intravenous contrast. No contrast reaction reported Sagittal, coronal, and MIP oblique sagittal reformatted images were obtained on the CT workstation, uploaded to PACS, and reviewed. This CT examination was performed using dose optimization techniques as appropriate, variously including the following: *Automated exposure control *Adjustment of mA and/or kV according to patient size (this includes techniques or standardized protocols for targeted exams where dose is matched to indication/reason for exam; i.e. extremities or head) *Use of iterative reconstruction technique Total exam dose-length product 257 mGy-cm FINDINGS: QUALITY OF STUDY/CONTRAST BOLUS: Suboptimal. PULMONARY ARTERIES: No central or large segmental THORACIC AORTA: No aneurysm. LUNG: There is mild peribronchial thickening. No focal consolidation, nodules or masses. PLEURA: No pleural effusion or pneumothorax. MEDIASTINUM: Normal heart size. No pericardial effusion. No hilar or mediastinal lymphadenopathy. No evidence of septal bowing or right heart strain. CORONARY ARTERY CALCIFICATION: None visualized on this study. CHEST WALL/AXILLA: No axillary or internal mammary lymphadenopathy. OSSEOUS STRUCTURES: No acute or suspicious osseous abnormality. UPPER ABDOMEN: Unremarkable. No reflux of contrast into the hepatic veins to suggest elevated right heart pressures. CT/CT angio chest PE protocol IMPRESSION: 1. No evidence of central or large segmental pulmonary emboli. Exam is somewhat limited by the contrast bolus. 2. Mild peribronchial thickening. VTE: negative but limited.
[2023-08-29 21:08] LABS: Basophils Percent Auto 0.4 % (0-2); Eosinophils Absolute Auto 0.1 X10*3/uL (0.0-0.4); Eosinophils Percent Auto 0.8 % (0-4); Hematocrit 35.3 % (37.0-47.0); Hemoglobin 11.2 g/dl (12.0-16.0); Imm Gran Abs Auto 0.01 X10*3/uL (0.00-0.03); Imm Gran Pct Auto 0.1 % (0.0-0.4); Lymphocytes Absolute Auto 2.8 X10*3/uL (1.2-4.9); Lymphocytes Percent Auto 37.5 % (20-40); MANUAL DIFF FLAG NO; Mean Corpuscular HGB Conc 31.7 g/dl (31.0-35.0); Mean Corpuscular Hemoglobin 23.2 pg (27.0-33.0); Mean Corpuscular Volume 73.2 fL (80.0-98.0); Mean Platelet Volume 9.3 fL (9.4-12.3); Monocytes Absolute Auto 0.7 X10*3/uL (0.1-1.2); Monocytes Percent Auto 9.3 % (2-11); Neutrophils Absolute Auto 3.9 x10*3/uL (2.0-8.3); Neutrophils Percent Auto 51.9 % (45-73); Platelet Count 329 X10*3/uL (160-400); Red Blood Count 4.82 X10*6/uL (4.20-5.50); Red Cell Distribution Width 18.8 % (11.0-16.0); White Blood Count 7.6 X10*3/uL (4.8-10.8)
[2023-08-29 21:13] LABS: INTERNATIONAL NORM RATIO 1.1 (0.9-1.1)
[2023-08-29 21:22] LABS: Alanine Aminotransferase 77 U/L (0-31); Albumin Level 3.7 g/dL (3.5-5.0); Alkaline Phosphatase 135 U/L (39-117); Anion Gap 14 (12-20); Aspartate Amino Transferase 45 U/L (5-31); Bilirubin Total 0.2 mg/dL (0.0-1.0); Blood Urea Nitrogen 12 mg/dL (9-16); Calcium 9.2 mg/dL (8.4-10.2); Carbon Dioxide 24 mmol/L (22-29); Chloride 110 mmol/L (96-108); Creatinine Clr Calc Pharmacy 101.5; Estimated Glomerular Filt Rate > 60; Glucose Random 104 mg/dL (60-115); Magnesium 1.6 mg/dL (1.6-2.6); Potassium 4.1 mmol/L (3.3-5.1); Sodium 144 mmol/L (135-145); Total Protein 6.8 g/dL (6.5-8.0)
[2023-08-29 21:40] LABS: Troponin-I High Sensitivity < 2.7 ng/L (<3.5-17.0)
[2023-08-29 23:05] LABS: D Dimer High Sensitivity 252 NG/ML
[2023-08-29] MEDS: 0.9 % Sodium Chloride 1,000 ML 999 ML IV (23:31)
[2023-08-29 23:38] LABS: HCG Quantitative < 2 mIU/mL; TSH reflex Free T4 < 0.01 uIU/mL (0.32-4.0)
--- NOTE | 2023-08-29 23:51 | ED.GENADULT ---
HPI - General Adult General Chief complaint: Arrhythmia/Palpitations Stated complaint: pulse check Time Seen by Provider: 08/29/23 22:55 Source: patient, RN notes reviewed and old records reviewed Mode of arrival: ambulatory Limitations: no limitations History of Present Illness ED Provider: Sofía COLE narrative: 22-year-old female with past medical history significant for hyperthyroidism presents for evaluation of tachycardia. Patient reports palpitations over the last 3-4 days. She states that when she checked her heart rate at home it was ?up to 140. ? She reports intermittent chest pain and shortness of breath. Currently she denies shortness of breath but does feel as though her heart is racing She is not currently on any medications. She states that she used to be on methimazole but this was discontinued around the time of her . She states that she gave in October of 2022 She reports being induced at 38 weeks due to tachycardia Denies any leg swelling, recent travel or history of blood clots Related Data Previous Rx's ?Medication ?Instructions ?Recorded oseltamivir 75 mg capsule (Tamiflu) 75 mg PO Q12H 5 days #10 caps 02/04/22 ondansetron 4 mg disintegrating 4 mg PO Q6-8H PRN nausea and 10/07/22 tablet vomiting #14 tabs methimazole 5 mg tablet 5 mg PO DAILY #90 tabs 08/30/23 propranolol 10 mg tablet 10 mg PO TID #90 tabs 08/30/23 Allergies Allergy/AdvReac Type Severity Reaction Status Date / Time No Known Allergies Allergy Verified 08/29/23 20:52 Review of Systems Constitutional: Constitutional: Denies body ache(s), Denies chills and Denies fever(s) Eyes: Eyes: Denies blurry vision ENT: Denies vertigo and Denies dizziness Cardiovascular: Cardiovascular: Reports chest pain, Reports rapid heart rate, Reports palpitations and Reports dyspnea Respiratory: Respiratory: Denies cough and Reports dyspnea Musculoskeletal: Musculoskeletal: Denies back pain Integumentary/Breasts: Skin/Breast: Denies rash Neurologic: Denies vertigo and Denies dizziness Endocrine: Endocrine: Reports palpitations PMF Social History Social History Alcohol intake: never Smoked in Last 30 Days: No Use of substances other than those prescribed or required for medical reasons: No Advance Directives: No Advance Directives Information Provided: No Do you have a plan to hurt others: No Plan Patient : No Physical Exam ED Vital Signs: Vital Signs - 24 hr 08/29/23 20:50 08/29/23 21:23 08/29/23 23:43 Temperature 98.9 F 97.7 F Pulse Rate 137 H 128 H 117 H Respiratory Rate 20 17 Blood Pressure 124/76 128/70 115/59 L Pulse Oximetry 100 100 Oxygen Delivery Method Room Air Room Air 08/29/23 23:44 08/29/23 23:45 08/29/23 23:47 Temperature Pulse Rate 117 H 119 H 117 H Respiratory Rate 22 H Blood Pressure 129/78 134/81 115/59 L Pulse Oximetry 100 Oxygen Delivery Method Room Air BMI result Body Mass Index 26.5 Const General: healthy appearing, comfortable, no acute distress, alert and awake Nutritional Appearance: well nourished Orientation/consciousness: patient oriented x3 HENMT Head: Yes normocephalic and Yes atraumatic Eyes Eyelids: Yes eyelids normal Conjunctivae: conjunctivae normal Sclerae: sclerae normal Corneas: corneas normal Pupils: Equal, round and reactive pupils present EOM: EOMs intact bilaterally Neck Neck: Yes full ROM Chest Other: No lower extremity edema Resp Effort & Inspection: normal respiratory effort, able to speak in complete sentences, no audible wheezes and not labored Auscultation: clear to auscultation bilaterally Cardio Rate: tachycardic Rhythm: regular rhythm Skin General skin exam: elasticity normal Neuro General: patient oriented x3 Cranial nerves: Yes Equal, round and reactive pupils present and Yes Bilaterally intact EOM present Cognition (Neuro): normal cognition Extrem Other: Moving all extremities well without any obvious deformities Medications Administered Discontinued Medications Generic Name Dose Route Start Last Admin Trade Name Freq PRN Reason Stop Dose Admin Sodium Chloride 1,000 mls @ 999 mls/hr 08/29/23 23:00 08/29/23 23:31 Ns IV 08/30/23 00:00 999 mls/hr .Q1H1M FELICIA Administration Iohexol 65 ml 08/30/23 00:25 08/30/23 00:25 Iohexol 350 Mg/Ml 100 Ml Infus..Btl IV 08/30/23 00:26 65 ml ONCE ONE Administration Medical Decision Making Medical Decision Making MDM Narrative: 22-year-old female with past medical history as above presents for evaluation of palpitations. Patient was tachycardic as high as 137, EKG does show sinus tachycardia. Given her history of hyperthyroidism I added on TSH with reflex T4. Given her history of tachycardia I ordered a D-dimer which was slightly elevated. She does complain of intermittent shortness of breath. A CTA was ordered. 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 No leukocytosis. Patient does have a mild anemia that is microcytic. This was discussed with the patient. There is no left shift. Coagulation studies significant for a D-dimer slightly elevated 252. Patient has mild transaminitis of unclear etiology. Electrolytes within normal limits with the exception of chloride is 110 just above normal. Renal function within normal limits, there is no DESI 08/29/23 21:03 08/29/23 21:03 Labs: Lab Results 08/29/23 Range/Units 21:03 WBC 7.6 (4.8-10.8) X10*3/uL RBC 4.82 (4.20-5.50) X10*6/uL Hgb 11.2 L (12.0-16.0) g/dl Hct 35.3 L (37.0-47.0) % MCV 73.2 L (80.0-98.0) fL MCH 23.2 L (27.0-33.0) pg MCHC 31.7 (31.0-35.0) g/dl RDW 18.8 H (11.0-16.0) % Plt Count 329 (160-400) X10*3/uL MPV 9.3 L (9.4-12.3) fL Immature Gran % (Auto) 0.1 (0.0-0.4) % Neut % (Auto) 51.9 (45-73) % Lymph % (Auto) 37.5 (20-40) % [place] % (Auto) 9.3 (2-11) % Eos % (Auto) 0.8 (0-4) % Baso % (Auto) 0.4 (0-2) % Lymph # (Auto) 2.8 (1.2-4.9) X10*3/uL [place] # (Auto) 0.7 (0.1-1.2) X10*3/uL Eos # (Auto) 0.1 (0.0-0.4) X10*3/uL Baso # (Auto) 0.0 (0.0-0.2) X10*3/uL Abs Immat Gran (auto) 0.01 (0.00-0.03) X10*3/uL Absolute Neuts (auto) 3.9 (2.0-8.3) x10*3/uL Absolute Nucleated RBC 0.000 (0.0-0.012) X10*3/uL Nucleated RBC % (auto) 0.0 (0.0-0.2) /100WBC PT 13.0 (11.1-13.3) SEC INR 1.1 (0.9-1.1) D-Dimer High Sensitivty 252 NG/ML Sodium 144 (135-145) mmol/L Potassium 4.1 (3.3-5.1) mmol/L Chloride 110 H (96-108) mmol/L Carbon Dioxide 24 (22-29) mmol/L Anion Gap 14 (12-20) BUN 12 (9-16) mg/dL Creatinine 0.76 (0.5-1.4) mg/dL Estim Creat Clear Calc 101.5 Estimated GFR > 60 Random Glucose 104 (60-115) mg/dL Calcium 9.2 (8.4-10.2) mg/dL Magnesium 1.6 (1.6-2.6) mg/dL Total Bilirubin 0.2 (0.0-1.0) mg/dL AST 45 H (5-31) U/L ALT 77 H (0-31) U/L Alkaline Phosphatase 135 H (39-117) U/L Troponin I High Sens < 2.7 (<3.5-17.0) ng/L Total Protein 6.8 (6.5-8.0) g/dL Albumin 3.7 (3.5-5.0) g/dL TSH < 0.01 L (0.32-4.0) uIU/mL Free T4 2.27 H (0.71-1.85) ng/dL Beta HCG, Quant < 2 mIU/mL Independent Interpretation I performed an independent interpretation of an: EKG (Sinus tachycardia rate of [address] segment changes) Discharge Plan Discharge Clinical Impression: Palpitations, Hyperthyroidism Patient Disposition: Home, Self-Care Instructions: Heart Palpitations (ED), Hyperthyroidism (ED) Additional Instructions: Start taking medication for your thyroid Drink plenty of fluids Follow up with auto parts salesperson Prescriptions: New methimazole 5 mg tablet 5 mg PO DAILY Qty: 90 0RF propranolol 10 mg tablet 10 mg PO TID Qty: 90 3RF No Action oseltamivir [Tamiflu] 75 mg capsule 75 mg PO Q12H 5 Days Qty: 10 0RF ondansetron 4 mg tablet,disintegrating 4 mg PO Q6-8H PRN (Reason: nausea and vomiting) Qty: 14 0RF Referrals: Ankit Belle MD [Physician] - 1 week Print Language: Indonesian
[2023-08-30 00:20] LABS: Free T4 (Free Thyroxine) 2.27 ng/dL (0.71-1.85)
[2023-08-30] MEDS: iohexoL 350 MG/ML 100 ML INFUS..BTL 65 ML IV (00:25)
[2023-08-30 01:57] VITALS: BP 120/52; PULSE 132
[2023-08-30] MEDS: Metoprolol Tartrate 25 MG TABLET PO (01:57)
[2023-08-30] MEDS: methIMAzole 5 MG TABLET PO (01:57)
[2023-08-30 01:58] VITALS: BP 120/52; PULSE 133; RESP 20; TEMP 36.8; O2SAT 99
[2023-08-30 04:04] VITALS: BP 108/56; PULSE 117; RESP 22; TEMP 37; O2SAT 99
== END 2023-08-30 03:05 | disposition home or self-care (01) ==
PROVIDERS: Physician Assistant; Emergency Provider Internal Medicine
DX: R00.2 Palpitations (principal); E05.90 Thyrotoxicosis, unspecified without thyrotoxic crisis or storm
CPT/HCPCS: 36415; 71275; 80053; 83735; 84439; 84443; 84484; 84702; 85025; 85379; 85610; 93005; 99284; 99285; Q9967

== ENCOUNTER → 2023-08-29 20:53 | Outpatient (BNV) | payer OTHER, SELFPAY | PROVIDERS: Emergency Provider Internal Medicine; Visit Provider Internal Medicine Cardiovascular Disease | DX: R94.31 Abnormal electrocardiogram [ECG] [EKG] (principal) | CPT/HCPCS: 93010 ==

== ENCOUNTER 2023-09-01 13:59 | Outpatient (AMB) | payer OTHER, SELFPAY ==
--- NOTE | 2023-09-01 14:00 | A.OFFVIS_ITS ---
Vital Signs 09/01/23 14:01 Height 5 ft 2 in Weight 168 lb 3.403 oz BMI 30.8 BP 100/62 Blood Pressure Location Lt brachial Position Sitting Pulse 125 H Pulse Source Pulse Oximeter Intake Visit Reasons: Hyperthyroidsm-confirmed Intake Note: Patient present today for Hyperthyroidism follow up visit. Multifocal Button Grinder Required: No Accompanied by: Self / Same As Patient Allergies No Known Allergies Allergy (Verified 09/01/23 14:05) Medication List - Last Reconciled 09/01/23 by Delmar Gonsales MD methimazole 5 mg PO DAILY ondansetron 4 mg PO Q6-8H PRN oseltamivir (Tamiflu) 75 mg PO Q12H 5 days propranolol 10 mg PO TID HPI Comments Details: 22 YO F with PMHx [] who is seen in consultation for hyperthyroidism at the request of PCP. Was initially diagnosed with hyperthyroidism 2 yrs ago. Saw endo at [facility] . Took methimazole for 1 yr. Stopped MMI 1 yr ago . Restarted MMI 2 days ago Currently denies any dysphagia or hoarseness of voice. Denies sensation of swelling in the neck or difficulty breathing while lying flat. Denies any tenderness in the neck. Has any palpitations, tremors, -weight loss, -frequent bowel movements. Denies any ocular complaints, blurred or double vision. Has hair loss, denes dry skin, heat or cold intolerance, weight gain, confusion. Denies any history of head or neck irradiation. Denies any family history of thyroid cancer. Father and sister has thyroid problems Had biopsy of nodules in the past. Use of kelp or seaweed : No Recent iodinated contrast dye: No Use of biotin Labs: [facility] Social History Alcohol intake: never Physical Exam HEENT reveals absence of lid lag , stare or proptosis or eyebrow loss. Thyroid gland is enlarged in size weighs about 45 g. No nodules or tenderness palpated. There is no cervical adenopathy palpated. Lungs CTA. Heart S1, S2 Reg R/R - M/R/G. Abdominal exam benign. Skin exam reveals absence of dryness or thyroid dermopathy or vitiligo. Nail exam reveals absence of thyroid acropachy or oncholysis. Neurologic exam reveals 2+ reflexes . Muscle Strength is 5/5 proximally. There are no tremors in upper extremities. Assessment & Plan Assessment & Plan (1) Hyperthyroidism: Code(s): E05.90 - Thyrotoxicosis, unspecified without thyrotoxic crisis or storm Category: Medical Plan: This is a 22-year-old female with a history of hyperthyroidism most likely due to Graves disease . She is currently on methimazole 5 mg q.d.. She appears to be clinically hyperthyroid Plan is to change the propranolol to metoprolol XL 50 mg. Will try to obtain records from [facility] treatment 2 years ago. Will check thyroid function studies, CBC and liver panel today to get baseline T3 although patient has started methimazole just 3 days ago. Will also try obtain a repeat set of thyroid function studies, liver panel and CBC in about 3 weeks' time. Went over side effects of methimazole including but not limited to skin rash, joint pains and rare risk of agranulocytosis. Lastly, discuss different options for treatment of hyperthyroidism including methimazole, radioactive iodine and surgery Orders: Orders Complete Blood Count Auto Diff Today E05.90 - Thyrotoxicosis, unspecified without thyrotoxic crisis or storm Complete Blood Count Auto Diff 3 Weeks E05.90 - Thyrotoxicosis, unspecified without thyrotoxic crisis or storm Triiodothyronine T3 Free 3 Weeks E05.90 - Thyrotoxicosis, unspecified without thyrotoxic crisis or storm Free T4 (Free Thyroxine) Today E05.90 - Thyrotoxicosis, unspecified without thyrotoxic crisis or storm Triiodothyronine T3 Free Today E05.90 - Thyrotoxicosis, unspecified without thyrotoxic crisis or storm Thyroid Stimulating Hormone Today E05.90 - Thyrotoxicosis, unspecified without thyrotoxic crisis or storm Liver Panel Today E05.90 - Thyrotoxicosis, unspecified without thyrotoxic crisis or storm Thyrotropin Receptor Antibody Today E05.90 - Thyrotoxicosis, unspecified without thyrotoxic crisis or storm Thyroid Stimulating Hormone 3 Weeks E05.90 - Thyrotoxicosis, unspecified without thyrotoxic crisis or storm Free T4 (Free Thyroxine) 3 Weeks E05.90 - Thyrotoxicosis, unspecified without thyrotoxic crisis or storm Liver Panel 3 Weeks E05.90 - Thyrotoxicosis, unspecified without thyrotoxic crisis or storm Medications: New metoprolol succinate ER 50 mg PO DAILY 30 tabs 4RF Discontinued propranolol Discontinued Reason: Doctor's Order 10 mg PO TID 90 tabs 3RF Coding Level of Care Code New Pt Level 4 (31980) Complex EM visit Add On G2211 Diagnoses Hyperthyroidism E05.90
[2023-09-01 14:01] VITALS: BP 100/62; PULSE 125; BMI 30.8
== END 2023-09-01 14:34 | disposition home or self-care (01) ==
PROVIDERS: Visit Provider Internal Medicine Endocrinology, Diabetes & Metabolism
DX: E05.90 Thyrotoxicosis, unspecified without thyrotoxic crisis or storm (principal)
CPT/HCPCS: 99204; G2211

== ENCOUNTER 2023-09-01 13:59 | Outpatient (REF) | payer OTHER, SELFPAY ==
[2023-09-01 14:55] LABS: MANUAL DIFF FLAG NO
[2023-09-01 15:42] LABS: Basophils Percent Auto 0.4 % (0-2); Eosinophils Absolute Auto 0.1 X10*3/uL (0.0-0.4); Eosinophils Percent Auto 0.8 % (0-4); Hematocrit 37.8 % (37.0-47.0); Hemoglobin 11.9 g/dl (12.0-16.0); Imm Gran Abs Auto 0.04 X10*3/uL (0.00-0.03); Imm Gran Pct Auto 0.4 % (0.0-0.4); Lymphocytes Absolute Auto 2.5 X10*3/uL (1.2-4.9); Lymphocytes Percent Auto 27.7 % (20-40); Mean Corpuscular HGB Conc 31.5 g/dl (31.0-35.0); Mean Corpuscular Hemoglobin 23.2 pg (27.0-33.0); Mean Corpuscular Volume 73.5 fL (80.0-98.0); Mean Platelet Volume 10.1 fL (9.4-12.3); Monocytes Absolute Auto 0.7 X10*3/uL (0.1-1.2); Monocytes Percent Auto 7.4 % (2-11); Neutrophils Absolute Auto 5.8 x10*3/uL (2.0-8.3); Neutrophils Percent Auto 63.3 % (45-73); Platelet Count 359 X10*3/uL (160-400); Red Blood Count 5.14 X10*6/uL (4.20-5.50); Red Cell Distribution Width 18.5 % (11.0-16.0); White Blood Count 9.2 X10*3/uL (4.8-10.8)
[2023-09-01 16:45] LABS: Alanine Aminotransferase 74 U/L (0-31); Albumin Level 3.9 g/dL (3.5-5.0); Alkaline Phosphatase 139 U/L (39-117); Aspartate Amino Transferase 50 U/L (5-31); Bilirubin Direct 0.2 mg/dL (0.0-0.5); Bilirubin Total 0.4 mg/dL (0.0-1.0); Total Protein 7.3 g/dL (6.5-8.0)
[2023-09-01 17:05] LABS: Free T4 (Free Thyroxine) 2.28 ng/dL (0.71-1.85); Thyroid Stimulating Hormone < 0.01 uIU/mL (0.32-4.0)
[2023-09-02 12:19] LABS: Triiodothyronine T3 Free 14.7 pg/mL (2.3-4.2)
[2023-09-03 21:43] LABS: Thyrotropin Receptor Antibody 18.15 IU/L (<=2.00)
== END 2023-09-01 14:00 | disposition home or self-care (01) ==
LOC: HO.LAB 13:59
PROVIDERS: Visit Provider Internal Medicine Endocrinology, Diabetes & Metabolism
DX: E05.90 Thyrotoxicosis, unspecified without thyrotoxic crisis or storm (principal)
CPT/HCPCS: 36415; 80076; 83520; 84439; 84443; 84481; 85025; 99202

== ENCOUNTER 2023-12-28 15:06 | Outpatient (AMB) | payer OTHER, SELFPAY ==
--- NOTE | 2023-12-28 15:07 | A.OFFVIS_ITS ---
Vital Signs 12/28/23 15:08 Height 5 ft 2 in Weight 162 lb 11.218 oz BMI 29.8 BP 110/70 Blood Pressure Location Lt brachial Position Sitting Pulse 80 Pulse Source Pulse Oximeter Intake Visit Reasons: Hyperthyroidsm-conf Intake Note: Patient present today for Hyperthyroidism follow up visit. Human Resources Compliance Manager Required: Yes Human Resources Compliance Manager Language: Can Vacuum Tester Services: Human Resources Compliance Manager Present Information Interpreted: non-clinical & clinical Accompanied by: Self / Same As Patient Allergies No Known Allergies Allergy (Verified 12/28/23 15:13) Medication List - Last Reconciled 12/28/23 by Delmar Gonsales MD methimazole 5 mg PO DAILY metoprolol succinate ER 50 mg PO DAILY ondansetron 4 mg PO Q6-8H PRN oseltamivir (Tamiflu) 75 mg PO Q12H 5 days HPI Comments Details: 23 YO F with PMHx [] who is seen in consultation for hyperthyroidism at the request of PCP. Was initially diagnosed with hyperthyroidism 2 yrs ago. Saw endo at [facility] . Took methimazole for 1 yr. Stopped MMI 1 yr ago . Now back on methimazole 5 mg q.d. and metoprolol Restarted MMI 2 days ago Currently denies any dysphagia or hoarseness of voice. Denies sensation of swelling in the neck or difficulty breathing while lying flat. Denies any tenderness in the neck. Has any palpitations, tremors, -weight loss, -frequent bowel movements. Denies any ocular complaints, blurred or double vision. Has hair loss, denes dry skin, heat or cold intolerance, weight gain, confusion. Denies any history of head or neck irradiation. Denies any family history of thyroid cancer. Father and sister has thyroid problems Had biopsy of nodules in the past. Use of kelp or seaweed : No Recent iodinated contrast dye: No Use of biotin No plans for PFSH Social History Alcohol intake: never Physical Exam Vital Signs: Last Vital Signs Pulse 80 12/28/23 15:08 BP 110/70 12/28/23 15:08 BMI result Body Mass Index 29.8 HEENT reveals absence of lid lag , stare or proptosis or eyebrow loss. Thyroid gland is enlarged in size weighs about 45 g. No nodules or tenderness palpated. There is no cervical adenopathy palpated. Lungs CTA. Heart S1, S2 Reg R/R - M/R/G. Abdominal exam benign. Skin exam reveals absence of dryness or thyroid dermopathy or vitiligo. Nail exam reveals absence of thyroid acropachy or oncholysis. Neurologic exam reveals 2+ reflexes . Muscle Strength is 5/5 proximally. There are no tremors in upper extremities. Assessment & Plan Assessment & Plan (1) Hyperthyroidism: Code(s): E05.90 - Thyrotoxicosis, unspecified without thyrotoxic crisis or storm Category: Medical Plan: This is a 22-year-old female with a history of hyperthyroidism due to Graves disease . She is currently on methimazole 5 mg q.d.. She appears to be clinically hyperthyroid Plan is to check thyroid function studies, CBC and liver panel. Will adjust methimazole dosage after Went over effects of methimazole including but not limited to skin rash, joint pains and rare risk of agranulocytosisagain Lastly, discuss different options for treatment of hyperthyroidism including methimazole, radioactive iodine and surgery. She was also 1 not to get while on the methimazole. Coding Level of Care Code Est Pt Level 3 (90691) Diagnoses Hyperthyroidism E05.90
[2023-12-28 15:08] VITALS: BP 110/70; PULSE 80; BMI 29.8
== END 2023-12-28 15:46 | disposition home or self-care (01) ==
PROVIDERS: Visit Provider Internal Medicine Endocrinology, Diabetes & Metabolism
DX: E05.90 Thyrotoxicosis, unspecified without thyrotoxic crisis or storm (principal)
CPT/HCPCS: 99213

== ENCOUNTER → 2023-12-28 15:06 | Outpatient (BNVA) | payer OTHER, SELFPAY | PROVIDERS: Visit Provider Internal Medicine Endocrinology, Diabetes & Metabolism | DX: E05.90 Thyrotoxicosis, unspecified without thyrotoxic crisis or storm (principal) | CPT/HCPCS: 99212 ==

== ENCOUNTER 2024-05-04 11:36 | Outpatient (REF) | payer OTHER, SELFPAY ==
[2024-05-04 12:04] LABS: MANUAL DIFF FLAG NO
[2024-05-04 12:31] LABS: Basophils Percent Auto 0.3 % (0-2); Eosinophils Absolute Auto 0.1 X10*3/uL (0.0-0.4); Eosinophils Percent Auto 1.6 % (0-4); Hematocrit 38.9 % (37.0-47.0); Hemoglobin 12.1 g/dl (12.0-16.0); Imm Gran Abs Auto 0.02 X10*3/uL (0.00-0.03); Imm Gran Pct Auto 0.2 % (0.0-0.4); Lymphocytes Absolute Auto 3.9 X10*3/uL (1.2-4.9); Lymphocytes Percent Auto 44.2 % (20-40); Mean Corpuscular HGB Conc 31.1 g/dl (31.0-35.0); Mean Corpuscular Hemoglobin 22.8 pg (27.0-33.0); Mean Corpuscular Volume 73.3 fL (80.0-98.0); Mean Platelet Volume 9.3 fL (9.4-12.3); Monocytes Absolute Auto 0.5 X10*3/uL (0.1-1.2); Monocytes Percent Auto 5.3 % (2-11); Neutrophils Absolute Auto 4.2 x10*3/uL (2.0-8.3); Neutrophils Percent Auto 48.4 % (45-73); Platelet Count 350 X10*3/uL (160-400); Red Blood Count 5.31 X10*6/uL (4.20-5.50); Red Cell Distribution Width 16.6 % (11.0-16.0); White Blood Count 8.7 X10*3/uL (4.8-10.8)
--- OUTSIDE RECORDS SUMMARY | 2024-05-04 12:55 | XMS_ITS | Clinical Summary ---
Author Organization [facility] Address [address] [place] [address] Care Team Providers Care Signals Officer Name Role Phone Terry Meek PA-C Primary Care Provider [phone] Source Comments PLEASE NOTE, if this patient is a minor, it may be UNLAWFUL to discuss sensitive information that is contained in these records (such as FAMILY PLANNING, MENTAL HEALTH or SUBSTANCE ABUSE) with the minor patient's parent or other person without the patient's specific authorization.[facility] Allergies No known active allergies Medications prenat.vits,jh, [id number] per tabletIndication s:13 weeks gestation of Take 1 Tab by mouth once daily 30 Tab 11 01/11/2019 Active Active Problems Problem Noted Date Diagnosed Date Hypothyroidism Thyroid disease Family History Medical History Relation Name Comments No Known Problems Brother Thyroid Disease Father No Known Problems Maternal Grandfather No Known Problems Maternal Grandmother Thyroid Disease Mother No Known Problems Paternal Grandfather No Known Problems Paternal Grandmother Thyroid Disease Sister 1 s/p thyroide ctomy No Known Problems Sister 2 Relation Name Status Comments Brother Alive Father Alive Maternal Grandfather Maternal Grandmother Mother Alive Paternal Grandfather Paternal Grandmother Alive Sister 1 Alive Sister 2 Alive Social History Tobacco Use Types Packs/Day Years Used Date Smoking Tobacco: Never Smokeless Tobacco: Never Alcohol Use Standard Drinks/Week Comments Never 0 (1 standard drink = 0.6 oz pur e alcohol) Social Connections Answer Date Recorded Social Connections and Isolation 0 01/11/2019 Financial Resource Strain Answer Date R ecorded Financial Resource Strain 0 2018 Stress Answer Date Recorded Stress 0 01/11/2019 Physical Activity Answer Date Recorded Physical Activity 0 01/11/2019 Food Insecurity Answer Date Recorded Food 0 01/11/2019 Transportation Needs Answer Date Record ed Transportation 0 01/11/2019 Housing Stability Answer Date Recorded Housing 0 01/11/2019 Safety and Environment Answer Date Fabian rded Safety 0 01/11/2019 Utilities Answer Date Recorded Utilities 0 01/11/2019 Employment Answer Date Recorded Employment 0 01/11/2019 Comments No Sex and Gender Information Value Date Recorded Sex Assigned at Female 01/11/2019 2:40 PM PDT Legal Sex Female 10:36 AM PDT Gender Identity Female 01/11/2019 2:40 PM PDT Sexual Orientation Straight 01/11/2019 2: 40 PM PDT Occupation Industry Job Start Date Job End Date unemployed Not on file Not on file Not on file Last Filed Vital Signs Vital Sign Reading Time Taken Comments Blood Pressure 100/58 01/11/2019 2:23 PM EDT Pulse 104 01/11/2019 2:23 PM EDT Temperature 37 ??C (98.6 ??F) 01/11/2019 2:23 PM EDT Respiratory Rate 20 01/11/2019 2:23 PM EDT Oxygen Saturation 96% 01/11/2019 2:23 PM EDT Inhaled Oxygen Concentration - - Weight 52.6 kg (116 lb) 01/11/2019 2:23 PM EDT Height 155 cm (5' 1.02 ) 01/11/2019 2:23 PM EDT Body Mass Index 21.9 01/11/2019 2:23 PM EDT Plan of Treatment Not on file Insurance [employer] Care Teams Signals Officer Relationship Specialty Start Date End Date Terry Meek PA-C [id number] [place] [id number] PCP - General 10/08/21
[2024-05-04 12:56] LABS: Alanine Aminotransferase 21 U/L (0-31); Albumin Level 3.9 g/dL (3.5-5.0); Alkaline Phosphatase 145 U/L (39-117); Aspartate Amino Transferase 21 U/L (5-31); Bilirubin Direct 0.2 mg/dL (0.0-0.5); Bilirubin Total 0.3 mg/dL (0.0-1.0); Total Protein 7.7 g/dL (6.5-8.0)
[2024-05-04 13:12] LABS: Free T4 (Free Thyroxine) 1.72 ng/dL (0.71-1.85); Thyroid Stimulating Hormone < 0.01 uIU/mL (0.32-4.0)
[2024-05-05 18:13] LABS: Triiodothyronine T3 Free 7.3 pg/mL (2.3-4.2)
== END 2024-05-04 11:37 | disposition home or self-care (01) ==
LOC: HO.LAB 11:36
PROVIDERS: Visit Provider Internal Medicine Endocrinology, Diabetes & Metabolism
DX: E05.90 Thyrotoxicosis, unspecified without thyrotoxic crisis or storm (principal)
CPT/HCPCS: 36415; 80076; 84439; 84443; 84481; 85025

== ENCOUNTER 2024-09-01 00:04 | Emergency (ER) | payer OTHER, SELFPAY ==
[2024-09-01 00:12] VITALS: BP 122/70; PULSE 125; RESP 16; TEMP 36.1; O2SAT 100; BMI 31.3
--- NOTE | 2024-09-01 00:16 | MHC.EDTECH ---
labs done upon arrival, pt unable to give urine sample in triage.
[2024-09-01 00:22] LABS: Basophils Percent Auto 0.1 % (0-2); Eosinophils Percent Auto 0.1 % (0-4); Hematocrit 38.7 % (37.0-47.0); Hemoglobin 12.6 g/dl (12.0-16.0); Imm Gran Abs Auto 0.05 X10*3/uL (0.00-0.03); Imm Gran Pct Auto 0.4 % (0.0-0.4); Lymphocytes Absolute Auto 0.9 X10*3/uL (1.2-4.9); Lymphocytes Percent Auto 7.3 % (20-40); MANUAL DIFF FLAG NO; Mean Corpuscular HGB Conc 32.6 g/dl (31.0-35.0); Mean Corpuscular Hemoglobin 23.2 pg (27.0-33.0); Mean Corpuscular Volume 71.1 fL (80.0-98.0); Mean Platelet Volume 9.6 fL (9.4-12.3); Monocytes Absolute Auto 0.5 X10*3/uL (0.1-1.2); Monocytes Percent Auto 4.4 % (2-11); Neutrophils Absolute Auto 10.9 x10*3/uL (2.0-8.3); Neutrophils Percent Auto 87.7 % (45-73); Platelet Count 302 X10*3/uL (160-400); Red Blood Count 5.44 X10*6/uL (4.20-5.50); Red Cell Distribution Width 15.8 % (11.0-16.0); White Blood Count 12.4 X10*3/uL (4.8-10.8)
[2024-09-01 00:44] LABS: Anion Gap 11 (12-20); Chloride 104 mmol/L (96-108); HCG Quantitative < 2 mIU/mL; Potassium 3.3 mmol/L (3.3-5.1); Sodium 135 mmol/L (135-145)
[2024-09-01 00:50] LABS: Alanine Aminotransferase 14 U/L (0-31); Albumin Level 3.9 g/dL (3.5-5.0); Alkaline Phosphatase 120 U/L (39-117); Aspartate Amino Transferase 16 U/L (5-31); Bilirubin Total 0.5 mg/dL (0.0-1.0); Blood Urea Nitrogen 13 mg/dL (9-16); Calcium 8.9 mg/dL (8.4-10.2); Carbon Dioxide 23 mmol/L (22-29); Creatinine Clr Calc Pharmacy 145.4; Estimated Glomerular Filt Rate > 60; Glucose Random 198 mg/dL (60-115); Lipase 10 U/L (8-78); Total Protein 7.1 g/dL (6.5-8.0)
[2024-09-01] MEDS: 0.9 % Sodium Chloride 1,000 ML 999 ML IV (00:54)
[2024-09-01] MEDS: ondansetron HCL 4 MG/2 ML VIAL IVPUSH (00:54)
[2024-09-01] MEDS: Ketorolac Tromethamine 30 MG/ML VIAL IVPUSH (00:54)
[2024-09-01 01:25] LABS: TSH reflex Free T4 < 0.01 uIU/mL (0.32-4.0)
--- NOTE | 2024-09-01 01:48 | ED.GENADULT ---
HPI - General Adult General Chief complaint: Abdominal Pain Stated complaint: diarrhea vomiting Time Seen by Provider: 09/01/24 00:16 Source: patient, RN notes reviewed and old records reviewed Mode of arrival: ambulatory Limitations: no limitations History of Present Illness ED Provider: Sofía COLE narrative: 23-year-old female presents for evaluation of abdominal pain, vomiting, diarrhea. Her symptoms started this morning. Denies any recent antibiotic use or recent travel pain Denies any sick contacts pain She has diffuse abdominal pain. The patient reports a previous ectopic but no other abdominal surgeries. Her pain is 8/10 Denies any fevers or chills pain Denies any black or bloody stool Related Data Previous Rx's ?Medication ?Instructions ?Recorded oseltamivir 75 mg capsule (Tamiflu) 75 mg PO Q12H 5 days #10 caps 02/04/22 ondansetron 4 mg disintegrating 4 mg PO Q6-8H PRN nausea and 10/07/22 tablet vomiting #14 tabs methimazole 5 mg tablet 5 mg PO DAILY #90 tabs 08/30/23 metoprolol succinate 50 mg 50 mg PO DAILY #90 tabs 11/29/23 tablet,extended release 24 hr ondansetron 4 mg disintegrating 4 mg PO Q8H PRN nausea and 09/01/24 tablet vomiting #20 tabs Allergies Allergy/AdvReac Type Severity Reaction Status Date / Time No Known Allergies Allergy Verified 09/01/24 00:13 Review of Systems Constitutional: Constitutional: Denies body ache(s), Denies chills and Denies fever(s) Eyes: Eyes: Denies blurry vision ENT: Denies dizziness Cardiovascular: Cardiovascular: Denies chest pain Respiratory: Respiratory: Denies cough and Denies pain with cough Gastrointestinal: Gastrointestinal: Reports abdominal pain, Denies belching, Denies melena, Reports nausea, Reports vomiting and Denies hematemesis Musculoskeletal: Musculoskeletal: Denies back pain Integumentary/Breasts: Skin/Breast: Denies rash Neurologic: Denies dizziness [facility] Social History Social History Alcohol intake: never Smoked in Last 30 Days: No Use of substances other than those prescribed or required for medical reasons: No Advance Directives: No Advance Directives Information Provided: Yes Do you have a plan to hurt others: No Plan Physical Exam ED Vital Signs: Vital Signs - 24 hr 09/01/24 00:12 Temperature 97.0 F Pulse Rate 125 H Respiratory Rate 16 Blood Pressure 122/70 Pulse Oximetry 100 Oxygen Delivery Method Room Air BMI result Body Mass Index 31.3 Const General: healthy appearing, comfortable, no acute distress, alert and awake Nutritional Appearance: well nourished Orientation/consciousness: patient oriented x3 HENMT Head: Yes normocephalic and Yes atraumatic Eyes Eyelids: Yes eyelids normal Conjunctivae: conjunctivae normal Sclerae: sclerae normal Corneas: corneas normal Pupils: Equal, round and reactive pupils present EOM: EOMs intact bilaterally Neck Neck: Yes full ROM Resp Effort & Inspection: normal respiratory effort, able to speak in complete sentences and not labored Cardio Rate: regular rate Rhythm: regular rhythm GI Other: Patient has diffuse abdominal tenderness without rebound or guarding. Abdomen is nondistended Inspection: No distended Palpation (GI): Soft to palpation, not firm, Tenderness to palpation present (GI), no guarding and not rigid Skin General skin exam: elasticity normal Neuro General: patient oriented x3 Cranial nerves: Yes Equal, round and reactive pupils present and Yes Bilaterally intact EOM present Cognition (Neuro): normal cognition Extrem Other: Moving all extremities well without any obvious deformities Medications Administered Discontinued Medications Generic Name Dose Route Start Last Admin Trade Name Freq PRN Reason Stop Dose Admin Sodium Chloride 1,000 mls @ 999 mls/hr 09/01/24 00:45 09/01/24 00:54 Ns IV 09/01/24 01:45 999 mls/hr .Q1H1M FELICIA Administration Ketorolac Tromethamine 30 mg 09/01/24 00:42 09/01/24 00:54 Ketorolac Tromethamine 30 Mg/Ml Vial IVPUSH 09/01/24 00:43 30 mg ONCE ONE Administration Ondansetron HCl 4 mg 09/01/24 00:42 09/01/24 00:54 Ondansetron Hcl 4 Mg/2 Ml Vial IVPUSH 09/01/24 00:43 4 mg ONCE ONE Administration Medical Decision Making Medical Decision Making [facility] Narrative: 23-year-old female with past medical history significant for hyperthyroidism not currently on any medications presents for evaluation of abdominal pain, nausea, vomiting diarrhea. Symptoms started this morning. She has a mild leukocytosis of 12.4 1000 which I feel is reactive to her vomiting. She has a reassuring abdominal exam, no right lower quadrant focal tenderness. She does have some mild diarrhea with no blood. No risk factors for C diff. she was treated with Toradol, Zofran and IV fluids and reports feeling much better. The patient was tachycardic on arrival which I feel could be related to the fact that she has been noncompliant with her methimazole and propranolol. I have a low suspicion for surgical abdomen. The patient be discharged with Zofran I encouraged her to follow up with the primary doctor regarding her hyperthyroidism. There was no evidence to suggest thyroid storm Differential Diagnosis Differential Diagnoses: The differential diagnosis associated with the presentation includes gastroenteritis Abdominal pain Nausea and vomiting Diverticulitis Colitis Acute appendicitis less likely Lab Data MDM Lab Attestation statement: I reviewed the patient's lab results. Mild leukocytosis as above, no significant anemia. Normal platelet count. No significant electrolyte abnormalities warranting intervention. Random glucose elevated to 198. No evidence of DKA 09/01/24 00:16 09/01/24 00:16 Labs: Lab Results 09/01/24 Range/Units 00:16 WBC 12.4 H (4.8-10.8) X10*3/uL RBC 5.44 (4.20-5.50) X10*6/uL Hgb 12.6 (12.0-16.0) g/dl Hct 38.7 (37.0-47.0) % MCV 71.1 L (80.0-98.0) fL MCH 23.2 L (27.0-33.0) pg MCHC 32.6 (31.0-35.0) g/dl RDW 15.8 (11.0-16.0) % Plt Count 302 (160-400) X10*3/uL MPV 9.6 (9.4-12.3) fL Immature Gran % (Auto) 0.4 (0.0-0.4) % Neut % (Auto) 87.7 H (45-73) % Lymph % (Auto) 7.3 L (20-40) % [place] % (Auto) 4.4 (2-11) % Eos % (Auto) 0.1 (0-4) % Baso % (Auto) 0.1 (0-2) % Lymph # (Auto) 0.9 L (1.2-4.9) X10*3/uL [place] # (Auto) 0.5 (0.1-1.2) X10*3/uL Eos # (Auto) 0.0 (0.0-0.4) X10*3/uL Baso # (Auto) 0.0 (0.0-0.2) X10*3/uL Abs Immat Gran (auto) 0.05 H (0.00-0.03) X10*3/uL Absolute Neuts (auto) 10.9 H (2.0-8.3) x10*3/uL Absolute Nucleated RBC 0.000 (0.0-0.012) X10*3/uL Nucleated RBC % (auto) 0.0 (0.0-0.2) /100WBC Sodium 135 (135-145) mmol/L Potassium 3.3 (3.3-5.1) mmol/L Chloride 104 (96-108) mmol/L Carbon Dioxide 23 (22-29) mmol/L Anion Gap 11 L (12-20) BUN 13 (9-16) mg/dL Creatinine 0.57 (0.5-1.4) mg/dL Estim Creat Clear Calc 145.4 Estimated GFR > 60 Random Glucose 198 H (60-115) mg/dL Calcium 8.9 (8.4-10.2) mg/dL Total Bilirubin 0.5 (0.0-1.0) mg/dL AST 16 (5-31) U/L ALT 14 (0-31) U/L Alkaline Phosphatase 120 H (39-117) U/L Total Protein 7.1 (6.5-8.0) g/dL Albumin 3.9 (3.5-5.0) g/dL Lipase 10 (8-78) U/L TSH < 0.01 L (0.32-4.0) uIU/mL Beta HCG, Quant < 2 mIU/mL Tests considered The following testing was considered but not selected: Consider CT scan of the abdomen pelvis but ultimately deferred due to reassuring exam and the patient's symptoms resolved with fluids, Toradol and Zofran. Discharge Plan Discharge Clinical Impression: Abdominal pain Patient Disposition: Home, Self-Care Instructions: Abdominal Pain (ED) Additional Instructions: Your workup in the ER today was reassuring. Hydrate well. Take Zofran for nausea and vomiting. You may use [id number] Imodium for further diarrhea Follow-up with your primary doctor, return for new or worsening symptoms Prescriptions: New ondansetron 4 mg tablet,disintegrating 4 mg PO Q8H PRN (Reason: nausea and vomiting) Qty: 20 0RF No Action metoprolol succinate 50 mg tablet extended release 24 hr 50 mg PO DAILY Qty: 90 1RF oseltamivir [Tamiflu] 75 mg capsule 75 mg PO Q12H 5 Days Qty: 10 0RF ondansetron 4 mg tablet,disintegrating 4 mg PO Q6-8H PRN (Reason: nausea and vomiting) Qty: 14 0RF methimazole 5 mg tablet 5 mg PO DAILY Qty: 90 0RF Stand Alone Forms: Work/School Release Print Language: [place] Citizen
[2024-09-01 02:02] LABS: Free T4 (Free Thyroxine) 1.82 ng/dL (0.71-1.85)
[2024-09-01 02:24] VITALS: BP 99/56; PULSE 101; RESP 18; TEMP 36.7; O2SAT 100
[2024-09-01 02:25] LABS: Appearance Urine Clear; Color Urine Yellow; Glucose Urine UA Negative (Negative); Leukocyte Esterase Urine Trace (Negative); Nitrite Urine Negative (Negative); PH 5.5 (5.0-9.0); Specific Gravity - Urine 1.015 (1.005-1.025); UMIC TRIGGER UACC YES; Urine Blood Negative (Negative); Urine Ketones Negative (Negative); Urine Protein Negative (Neg-Trace)
[2024-09-01 02:43] LABS: Bacteria Urine None Seen (None Seen); Hyaline Casts Urine 0-2 /LPF (0-2); RBC Urine 0-2 /HPF (0-2); WBC Urine 0-5 /HPF (0-5)
== END 2024-09-01 02:30 | disposition home or self-care (01) ==
PROVIDERS: Physician Assistant; Emergency Provider Emergency Medicine; PCP Pediatrics
DX: R19.7 Diarrhea, unspecified (principal); R11.2 Nausea with vomiting, unspecified; R10.2 Pelvic and perineal pain; Z79.899 Other long term (current) drug therapy
CPT/HCPCS: 36415; 80053; 81001; 83690; 84439; 84443; 84702; 85025; 96361; 96374; 96375; 99284; 99285; J1885; J2405

== ENCOUNTER 2025-02-05 21:38 | Emergency (ER) | payer OTHER, SELFPAY ==
[2025-02-05 21:42] VITALS: BP 124/58; PULSE 116; RESP 20; TEMP 36.5; O2SAT 100; BMI 25.6
[2025-02-05 22:49] LABS: MANUAL DIFF FLAG NO
--- NOTE | 2025-02-05 22:57 | ED.GENADULT ---
HPI - General Adult General Chief complaint: Skin/Abscess/Foreign Body Stated complaint: WHOLE BODY ITCHES Time Seen by Provider: 02/05/25 22:20 Source: patient Limitations: no limitations History of Present Illness ED Provider: Sravani Montague PA-C HPI narrative: 24-year-old female with a history of hyperthyroidism, who has been off her medication for months, presents with diffuse pruritus. Patient states she is itching from head to toe, no rash. Associated hair loss. No change in body products. No new food, no new medication. Denies sore throat, dysphagia, dyspnea, wheezing, tongue swelling or angioedema. Related Data Previous Rx's ?Medication ?Instructions ?Recorded oseltamivir 75 mg capsule (Tamiflu) 75 mg PO Q12H 5 days #10 caps 02/04/22 ondansetron 4 mg disintegrating 4 mg PO Q6-8H PRN nausea and 10/07/22 tablet vomiting #14 tabs methimazole 5 mg tablet 5 mg PO DAILY #90 tabs 08/30/23 metoprolol succinate 50 mg 50 mg PO DAILY #90 tabs 11/29/23 tablet,extended release 24 hr ondansetron 4 mg disintegrating 4 mg PO Q8H PRN nausea and 09/01/24 tablet vomiting #20 tabs methimazole 5 mg tablet 5 mg PO DAILY #30 tabs 02/06/25 metoprolol succinate 50 mg 50 mg PO DAILY #30 tabs 02/06/25 tablet,extended release 24 hr Allergies Allergy/AdvReac Type Severity Reaction Status Date / Time No Known Allergies Allergy Verified 02/05/25 21:43 Review of Systems Review of Systems: Yes all other systems are reviewed and are negative Constitutional: Constitutional: Denies fatigue and Denies fever(s) ENT: Denies sore throat, Denies throat swelling and Denies tongue swelling Cardiovascular: Cardiovascular: Denies chest pain and Denies dyspnea Respiratory: Respiratory: Denies dyspnea Gastrointestinal: Gastrointestinal: Denies nausea and Denies vomiting Integumentary/Breasts: Skin/Breast: Reports alopecia, Reports pruritus, Denies erythema, Denies rash, Denies sores and Denies wounds Endocrine: Endocrine: Denies fatigue Allergic/Immunologic: Allergic/Immunologic: Denies throat swelling and Denies tongue swelling PMF Past Medical History Attestation statement: The following information was validated with the patient. Social History Social History Unable to assess alcohol history related to: Unknown Alcohol intake: never Smoked in Last 30 Days: No Use of substances other than those prescribed or required for medical reasons: No Advance Directives: No Advance Directives Information Provided: No Patient : No Physical Exam ED Vital Signs: Vital Signs - 24 hr 02/05/25 21:42 02/05/25 23:10 02/05/25 23:14 Temperature 97.7 F Pulse Rate 116 H 112 H 114 H Respiratory Rate 20 16 Blood Pressure 124/58 L 106/67 106/67 Pulse Oximetry 100 100 Oxygen Delivery Method Room Air Room Air BMI result Body Mass Index 25.6 Const Other: alert Orientation/consciousness: patient oriented x3 Resp Effort & Inspection: normal respiratory effort Cardio Other: normal peripheral perfusion Skin Other: warm dry no rash Neuro General: patient oriented x3, gait normal, no focal motor deficits and CN's II-XI intact bilaterally Psych Other: cooperative Medications Administered Discontinued Medications Generic Name Dose Route Start Last Admin Trade Name Reyna PRN Reason Stop Dose Admin Methimazole 5 mg 02/05/25 22:33 02/05/25 23:13 Methimazole 5 Mg Tablet PO 02/05/25 22:34 5 mg ONCE ONE Administration Metoprolol Succinate 50 mg 02/05/25 22:33 02/05/25 23:10 Metoprolol Succinate Er 50 Mg Tab.Er.24h PO 02/05/25 22:34 50 mg ONCE ONE Administration Protocol Medical Decision Making Medical Decision Making MDM Narrative: 24-year-old female with a history of hyperthyroidism, who has been off her medication for months, presents with diffuse pruritus. Patient states she is itching from head to toe, no rash. associated hair loss. No change in body products. No new food, no new medication. Denies sore throat, dysphagia, dyspnea, wheezing, tongue swelling or angioedema. Problem: Untreated hyperthyroidism History: Per patient I have considered the following differential diagnoses: Bedbugs, scabies, dry skin, contact dermatitis, drug reaction, bilirubinemia, allergic reaction, anaphylaxis, urticaria , Symptomatic hyperthyroidism Plan: the patient is likely experiencing symptoms of hyperthyroidism given she has been not adherent with the medication for months. We will screen basic labs, TSH and free T4, giving her a dose of her scheduled medications. The patient has no rash, it is subjective pruritus. I have independently reviewed the following tests: Labs: No leukocytosis, not anemic, no electrolyte abnormality noted, TSH less than 0.01, free T4 1.83 Differential Diagnosis Differential Diagnoses: The differential diagnosis associated with the presentation includes See [facility] Admission/Observation Consideration of admission/observation: Escalation of care including admission/observation considered not applicable Lab Data [facility] Lab Attestation statement: I reviewed the patient's lab results. 02/05/25 22:44 02/05/25 22:44 Labs: Lab Results 02/05/25 Range/Units 22:44 WBC 10.8 (4.8-10.8) X10*3/uL RBC 5.27 (4.20-5.50) X10*6/uL Hgb 11.9 L (12.0-16.0) g/dl Hct 37.5 (37.0-47.0) % MCV 71.2 L (80.0-98.0) fL MCH 22.6 L (27.0-33.0) pg MCHC 31.7 (31.0-35.0) g/dl RDW 15.6 (11.0-16.0) % Plt Count 356 (160-400) X10*3/uL MPV 9.4 (9.4-12.3) fL Immature Gran % (Auto) 0.3 (0.0-0.4) % Neut % (Auto) 54.0 (45-73) % Lymph % (Auto) 38.1 (20-40) % Forest % (Auto) 6.1 (2-11) % Eos % (Auto) 1.1 (0-4) % Baso % (Auto) 0.4 (0-2) % Lymph # (Auto) 4.1 (1.2-4.9) X10*3/uL Forest # (Auto) 0.7 (0.1-1.2) X10*3/uL Eos # (Auto) 0.1 (0.0-0.4) X10*3/uL Baso # (Auto) 0.0 (0.0-0.2) X10*3/uL Abs Immat Gran (auto) 0.03 (0.00-0.03) X10*3/uL Absolute Neuts (auto) 5.9 (2.0-8.3) x10*3/uL Absolute Nucleated RBC 0.000 (0.0-0.012) X10*3/uL Nucleated RBC % (auto) 0.0 (0.0-0.2) /100WBC Sodium 140 (135-145) mmol/L Potassium 3.9 (3.3-5.1) mmol/L Chloride 109 H (96-108) mmol/L Carbon Dioxide 25 (22-29) mmol/L Anion Gap 10 L (12-20) BUN 13 (9-16) mg/dL Creatinine 0.53 (0.5-1.4) mg/dL Estim Creat Clear Calc 140.8 Estimated GFR > 60 Random Glucose 93 (60-115) mg/dL Calcium 9.4 (8.4-10.2) mg/dL Magnesium 1.7 (1.6-2.6) mg/dL Total Bilirubin 0.3 (0.0-1.0) mg/dL AST 22 (5-31) U/L ALT 16 (0-31) U/L Alkaline Phosphatase 127 H (39-117) U/L Total Protein 7.2 (6.5-8.0) g/dL Albumin 4.0 (3.5-5.0) g/dL TSH < 0.01 L (0.32-4.0) uIU/mL Free T4 1.83 (0.71-1.85) ng/dL Beta HCG, Quant < 2 mIU/mL Discharge Plan Discharge Clinical Impression: Hyperthyroidism, Pruritus Patient Disposition: Home, Self-Care Instructions: Hyperthyroidism (ED), Itchy Skin (ED) Additional Instructions: you had no overt lab abnormalities, you clinically still have hyperthyroidism. You need to take your medication as directed. You need to follow up with your [employer], this is the specialty that manages your hyperthyroidism. Call tomorrow to schedule an appointment. I can give you a temporary prescription for both of the medications that you are supposed to be taking. Take the methimazole as directed, take the metoprolol as directed. Prescriptions: New methimazole 5 mg tablet 5 mg PO DAILY Qty: 30 0RF metoprolol succinate 50 mg tablet extended release 24 hr 50 mg PO DAILY Qty: 30 0RF No Action metoprolol succinate 50 mg tablet extended release 24 hr 50 mg PO DAILY Qty: 90 1RF oseltamivir [Tamiflu] 75 mg capsule 75 mg PO Q12H 5 Days Qty: 10 0RF ondansetron 4 mg tablet,disintegrating 4 mg PO Q6-8H PRN (Reason: nausea and vomiting) Qty: 14 0RF ondansetron 4 mg tablet,disintegrating 4 mg PO Q8H PRN (Reason: nausea and vomiting) Qty: 20 0RF methimazole 5 mg tablet 5 mg PO DAILY Qty: 90 0RF Stand Alone Forms: Work/School Release Print Language: Bel[place]ian
[2025-02-05 23:04] LABS: Hematocrit 37.5 % (37.0-47.0); Hemoglobin 11.9 g/dl (12.0-16.0); Red Blood Count 5.27 X10*6/uL (4.20-5.50); White Blood Count 10.8 X10*3/uL (4.8-10.8)
[2025-02-05 23:05] LABS: Imm Gran Abs Auto 0.03 X10*3/uL (0.00-0.03); Imm Gran Pct Auto 0.3 % (0.0-0.4); Lymphocytes Absolute Auto 4.1 X10*3/uL (1.2-4.9); Mean Corpuscular HGB Conc 31.7 g/dl (31.0-35.0); Mean Corpuscular Hemoglobin 22.6 pg (27.0-33.0); Mean Corpuscular Volume 71.2 fL (80.0-98.0); NRBC Abs Auto 0.000 X10*3/uL (0.0-0.012); NRBC Pct Auto 0.0 /100WBC (0.0-0.2); Platelet Count 356 X10*3/uL (160-400)
[2025-02-05 23:10] VITALS: BP 106/67; PULSE 112
[2025-02-05] MEDS: Metoprolol Succinate ER 50 MG TAB.ER.24H PO (23:10)
[2025-02-05 23:12] LABS: Alanine Aminotransferase 16 U/L (0-31); Albumin Level 4.0 g/dL (3.5-5.0); Alkaline Phosphatase 127 U/L (39-117); Anion Gap 10 (12-20); Aspartate Amino Transferase 22 U/L (5-31); Blood Urea Nitrogen 13 mg/dL (9-16); Calcium 9.4 mg/dL (8.4-10.2); Carbon Dioxide 25 mmol/L (22-29); Chloride 109 mmol/L (96-108); Creatinine Clr Calc Pharmacy 140.8; Estimated Glomerular Filt Rate > 60; Magnesium 1.7 mg/dL (1.6-2.6); Potassium 3.9 mmol/L (3.3-5.1); Sodium 140 mmol/L (135-145); Total Protein 7.2 g/dL (6.5-8.0)
[2025-02-05 23:14] VITALS: BP 106/67; PULSE 114; RESP 16; O2SAT 100
[2025-02-06] LABS: Free T4 (Free Thyroxine) 1.83 ng/dL (0.71-1.85)
[2025-02-06 00:48] VITALS: BP 106/67; PULSE 107; RESP 16; TEMP 36.3; O2SAT 100
== END 2025-02-06 00:50 | disposition home or self-care (01) ==
PROVIDERS: Physician Assistant Medical; Emergency Provider Emergency Medicine; PCP Pediatrics
DX: E05.90 Thyrotoxicosis, unspecified without thyrotoxic crisis or storm (principal); L29.9 Pruritus, unspecified
CPT/HCPCS: 36415; 80053; 83735; 84439; 84443; 84702; 85025; 99283; 99284